=== PATIENT | male | born 1965 | race Caucasian/White ===

== ENCOUNTER 2016-09-25 15:23 | Emergency (ER) | payer BC ==
--- NOTE | 2016-09-25 18:04 | ER Document Report ---
ED Medical Screen (RME) - General Chief Complaint: High Blood Pressure Stated Complaint: BACK PAIN Mode of Arrival: Ambulatory Information source: Patient Notes: Patient is c/o "just not feeling up" and believes his blood pressure is up. He endorses feeling "foggy" in the head for the past 3 days. He endorses back pain that radiates down both legs and describes the pain as burning. Associated symptoms include lightheadedness, changes in vision, headache denies fever, chills, cough, chest pain, SOB, n/v or urinary symptoms. TRAVEL OUTSIDE OF THE U[place] IN LAST 30 DAYS: No - Related Data Allergies/Adverse Reactions: ibuprofen Allergy (Verified 09/25/16 15:30) Past Medical History - Past Medical History Cardiac Medical History: Reports: Hx Hypertension Past Surgical History: Reports: Hx Orthopedic Surgery - Discectomy and spinal fusion L5-S1 2009 in [place] - Immunizations Hx Diphtheria, Pertussis, Tetanus Vaccination: Yes Review of Systems - Review of Systems Constitutional: See HPI Musculoskeletal: See HPI Physical Exam - Vital signs Vitals: Temp Pulse Resp BP Pulse Ox 97.7 F 74 18 154/104 H 98 09/25/16 15:27 09/25/16 15:27 09/25/16 15:27 09/25/16 15:27 09/25/16 15:27 - Notes Notes: General: alert and oriented. Well-appearing. BP elevated 154/104 but otherwise VSS Course - Vital Signs Vital signs: Temp Pulse Resp BP Pulse Ox 97.7 F 74 18 154/104 H 98 09/25/16 15:27 09/25/16 15:27 09/25/16 15:27 09/25/16 15:27 09/25/16 15:27
[2016-09-25 19:09] LABS: ABSOLUTE BASOPHILS # (AUTO) 0.1 10^3/uL (0.0-0.2); ABSOLUTE EOSINOPHILS # (AUTO) 0.1 10^3/uL (0.0-0.6); ABSOLUTE LYMPHOCYTES (AUTO) 1.5 10^3/uL (0.5-4.7); ABSOLUTE MONOCYTES (AUTO) 0.5 10^3/uL (0.1-1.4); ABSOLUTE NEUT (AUTO) 4.9 10^3/uL (1.7-8.2); HEMATOCRIT 45.5 % (37.9-51.0); HEMOGLOBIN 15.7 g/dL (13.5-17.0); HGB HCT DIFFERENCE 1.6; LYMPHOCYTES % (AUTO) 21.1 % (13-45); MEAN CORPUSCULAR HEMOGLOBIN 31.4 pg (27.0-33.4); MEAN CORPUSCULAR HGB CONC 34.5 g/dL (32.0-36.0); MEAN CORPUSCULAR VOLUME 91 fl (80-97); RED CELL DISTRIBUTION WIDTH 13.5 % (11.5-14.0); SEGMENTED NEUTROPHILS % (AUTO) 68.9 % (42-78); WHITE BLOOD COUNT 7.1 10^3/uL (4.0-10.5)
[2016-09-25 19:19] LABS: APPEARANCE,URINE CLEAR; BILIRUBIN,URINE NEGATIVE (NEGATIVE); GLUCOSE, URINE NEGATIVE (NEGATIVE); KETONES,URINE NEGATIVE (NEGATIVE); LEUKOCYTE ESTERASE,URINE NEGATIVE (NEGATIVE); NITRITE,URINE NEGATIVE (NEGATIVE); PROTEIN,URINE NEGATIVE (NEGATIVE); URINE SPECIFIC GRAVITY 1.021; UROBILINOGEN,URINE NEGATIVE mg/dL (<2.0)
[2016-09-25 19:29] LABS: ALANINE AMINOTRANSFERASE 62 U/L (21-72); ALBUMIN 4.2 g/dL (3.5-5.0); ALKALINE PHOSPHATASE 67 U/L (38-126); ANION GAP 14 (5-19); ASPARTATE AMINO TRANSFERASE 30 U/L (17-59); BILIRUBIN,TOTAL 0.7 mg/dL (0.2-1.3); BLOOD UREA NITROGEN 10 mg/dL (7-20); CALCIUM 9.8 mg/dL (8.4-10.2); CARBON DIOXIDE 28 mmol/L (22-30); CHLORIDE 104 mmol/L (98-107); CREATININE RESULT 1.02 mg/dL (0.52-1.25); GLUCOSE 107 mg/dL (75-110); POTASSIUM 3.9 mmol/L (3.6-5.0); SODIUM 145.5 mmol/L (137-145)
--- NOTE | 2016-09-25 22:02 | EKG REPORT ---
SEVERITY:- NORMAL ECG - SINUS RHYTHM : Confirmed by: Zach Whitley 25-Sep-2016 22:01:05
[2016-09-25] MEDS ORDERED: OXYCODONE-ACETAMINOPHEN 5-325 MG TABLET PO ONE (22:37)
[2016-09-25] MEDS ORDERED: GABAPENTIN 300 MG CAPSULE PO ONE (22:37)
--- NOTE | 2016-09-25 22:45 | ER Document Report ---
ED General - General Chief Complaint: Blood Pressure Problem Stated Complaint: BACK PAIN Mode of Arrival: Ambulatory TRAVEL OUTSIDE OF THE U[place] IN LAST 30 DAYS: No - HPI Patient complains to provider of: lower back pain elevated blood pressure Notes: Patient states recently relocated from [place] to [facility]. Patient states ongoing back pain in the last few days no bowel or bladder incontinence. Patient states burning tingling sensation lateral feet going down the back of his legs. Patient states he had an ablation of some spinal nerves in [place] for his chronic back pain. Patient denies numbness and tingling no saddle anesthesias. Denies fevers chills. Patient also states that his blood pressures been elevated last few days. Patient currently on amlodipine. Patient has not established his care with a local providers - Related Data Allergies/Adverse Reactions: ibuprofen Allergy (Verified 09/25/16 22:26) Past Medical History - General Information source: Patient - Social History Smoking Status: Unknown if Ever Smoked Family History: Reviewed & Not Pertinent Patient has suicidal ideation: No Patient has homicidal ideation: No - Past Medical History Cardiac Medical History: Reports: Hx Hypertension Past Surgical History: Reports: Hx Orthopedic Surgery - Discectomy and spinal fusion L5-S1 2009 in [place] - Immunizations Hx Diphtheria, Pertussis, Tetanus Vaccination: Yes Review of Systems - Review of Systems Constitutional: Other - Hypertension EENT: No symptoms reported Cardiovascular: No symptoms reported Respiratory: No symptoms reported Gastrointestinal: No symptoms reported Genitourinary: No symptoms reported Male Genitourinary: No symptoms reported Musculoskeletal: Back pain Skin: No symptoms reported Hematologic/Lymphatic: No symptoms reported Neurological/Psychological: No symptoms reported Physical Exam - Vital signs Vitals: Temp Pulse Resp BP Pulse Ox 97.7 F 74 18 154/104 H 98 09/25/16 15:27 09/25/16 15:27 09/25/16 15:27 09/25/16 15:27 09/25/16 15:27 Interpretation: Hypertensive - General General appearance: Appears well, Alert - HEENT Head: Normocephalic, Atraumatic Eyes: Normal Pupils: PERRL - Respiratory Respiratory status: No respiratory distress Chest status: Nontender Breath sounds: Normal Chest palpation: Normal - Cardiovascular Rhythm: Regular Heart sounds: Normal auscultation Murmur: No - Abdominal Inspection: Normal Distension: No distension Bowel sounds: Normal Tenderness: Nontender Organomegaly: No organomegaly - Back Back: Normal, Nontender - Extremities General upper extremity: Normal inspection, Nontender, Normal color, Normal ROM , Normal temperature General lower extremity: Normal inspection, Nontender, Normal color, Normal ROM , Normal temperature, Normal weight bearing. No: Shaka's sign - Neurological Neuro grossly intact: Yes Cognition: Normal Orientation: AAOx4 Trish Coma Scale Eye Opening: Spontaneous Trish Coma Scale Verbal: Oriented [place] Coma Scale Motor: Obeys Commands [place] Coma Scale Total: 15 Speech: Normal Motor strength normal: LUE, RUE, LLE, RLE Sensory: Normal Knee - Reflex grade: 2 = Normal - Psychological Associated symptoms: Normal affect, Normal mood - Skin Skin Temperature: Warm Skin Moisture: Dry Skin Color: Normal Course - Re-evaluation Re-evalutation: 09/26/16 04:23 Possibility patient had neuropathic pain. Will start patient on Neurontin. Also give the patient oxycodone for pain relief. Patient is to follow-up PCP and local pain clinic. Patient states understanding lab work otherwise shows no critical etiology physical exam shows no critical etiology. - Vital Signs Vital signs: Temp Pulse Resp BP Pulse Ox 98.4 F 74 16 147/84 H 97 09/25/16 23:11 09/25/16 23:11 09/25/16 23:11 09/25/16 23:11 09/25/16 23:11 - Laboratory Result Diagrams: 09/25/16 18:45 09/25/16 18:45 Laboratory results interpreted by me: 09/25/16 18:45 Sodium 145.5 H Discharge - Discharge Clinical Impression: Low back pain Qualifiers: Chronicity: acute Back pain laterality: bilateral Sciatica presence: without sciatica Qualified Code(s): M54.5 - Low back pain Hypertension Qualifiers: Hypertension type: essential hypertension Qualified Code(s): I10 - Essential ( primary) hypertension Condition: Good Disposition: HOME, SELF-CARE Instructions: Low Back Pain ([facility]), Chronic Back Pain ([facility]), Chronic Pain Control ([facility]), Oral Narcotic Medication ([facility]) Additional Instructions: Follow-up with primary care physician provided. Also follow-up with chronic pain specialist provided. Take medication as prescribed. Return to the ER symptoms worsen. Please continue hypertensive medications. Prescriptions: Gabapentin [Neurontin 300 mg Capsule] 300 mg PO Q8 #90 cap Oxycodone HCl 5 mg PO Q6 #20 tablet Referrals: GLENNA SIFUENTES MD [ACTIVE STAFF] - Follow up as needed FREDERIC BROWN MD [ACTIVE STAFF] - Follow up as needed
[2016-09-25 23:12] VITALS: BP 147/84
== END 2016-09-25 23:14 | disposition home or self-care (01) ==
LOC: ER 15:23
DX: M54.5 Low back pain (principal); I10 Essential (primary) hypertension; Z79.899 Other long term (current) drug therapy
CPT/HCPCS: 36415; 80053; 81001; 84484; 85025; 93005; 93010; 99283

== ENCOUNTER 2016-10-31 10:11 | Emergency (ER) | payer BC ==
[2016-10-31 10:51] VITALS: BP 129/92
[2016-10-31] MEDS ORDERED: ACETAMINOPHEN 325 MG TABLET PO ONE (11:10)
[2016-10-31] MEDS ORDERED: PREDNISONE 20 MG TABLET PO ONE (11:10)
[2016-10-31] MEDS ORDERED: IPRATROPIUM/ALBUTEROL 0.5-2.5 MG/3 ML AMPUL NEB ONE (11:10)
--- NOTE | 2016-10-31 11:11 | ER Document Report ---
ED Medical Screen (RME) - General Stated Complaint: LIGHT HEADED Mode of Arrival: Ambulatory Information source: Patient Notes: Patient blood pressure at home was 192/106 at home. Patient states his blood pressure is now improved. Patient reports dizziness and headache at home. Patient reports only mild headache now. Patient denies any chest pain, but does report a recent chest cold. Patient states that headache pain is more to the sinus area and he is congested right now. Hx: Hypertension, chronic pain due to back surgery I have greeted and performed a rapid initial assessment of this patient. A comprehensive ED assessment and evaluation of the patient, analysis of test results and completion of the medical decision making process will be conducted by additional ED providers. TRAVEL OUTSIDE OF THE [place] IN LAST 30 DAYS: No - Related Data Allergies/Adverse Reactions: ibuprofen Allergy (Verified 10/31/16 11:06) Past Medical History - Past Medical History Cardiac Medical History: Reports: Hx Hypertension Past Surgical History: Reports: Hx Orthopedic Surgery - Discectomy and spinal fusion L5-S1 2009 in [place] - Immunizations Hx Diphtheria, Pertussis, Tetanus Vaccination: Yes Physical Exam - Vital signs Vitals: Temp Pulse Resp Pulse Ox 98.4 F 75 18 95 10/31/16 10:48 10/31/16 10:48 10/31/16 10:48 10/31/16 10:48 - Neurological Cognition: Normal Trish Coma Scale Eye Opening: Spontaneous Trish Coma Scale Verbal: Oriented [place] Coma Scale Motor: Obeys Commands [place] Coma Scale Total: 15 Course - Vital Signs Vital signs: Temp Pulse Resp BP Pulse Ox 98.4 F 75 18 129/92 H 95 10/31/16 10:48 10/31/16 10:48 10/31/16 10:48 10/31/16 10:49 10/31/16 10:48
[2016-10-31] MEDS ORDERED: ALBUTEROL SULFATE 0.083% NEB 2.5 MG/3 ML AMPUL NEB SCH (11:25)
== END 2016-10-31 12:41 | disposition left against medical advice (07) ==
LOC: ER 10:11
DX: Z53.9 Procedure and treatment not carried out, unspecified reason (principal); R42 Dizziness and giddiness; R51 Headache; I10 Essential (primary) hypertension
CPT/HCPCS: 94640; 99281; 71020; J7512; J7620

== ENCOUNTER 2017-11-08 14:11 | Emergency (ER) | payer BC ==
[2017-11-08] MEDS ORDERED: DEXAMETHASONE SOD PHOS INJ 10 MG/1 ML VIAL IM ONE (15:27)
--- NOTE | 2017-11-08 15:29 | ER Document Report ---
HPI - HPI Pain Level: 4 Notes: Patient is a 52-year-old male with a history of hypertension and chronic back pain who presents to the ED complaining of reinjury to his lower back. Patient states that he twisted wrong a few days ago causing recurrence of his pain. Patient states that on occasion his pain will radiate down into his posterior legs bilaterally. Pain is worsened with truncal movements. Patient states that he is still ambulatory otherwise without any difficulties. He is still eating and drinking without any difficulties. He is urinating normally having normal bowel movements. Patient denies any previous history of spinal abscess, IV drug use, cancer, diabetes. Patient states that he is in the process of getting set up with another specialist to have another rhizotomy performed. Denies any headache, fever, head injury, neck pain, URI, sore throat, chest pain , palpitations, syncope, cough, shortness of breath, wheeze, dyspnea, abdominal pain, nausea/vomiting/diarrhea, urinary retention, dysuria, hematuria, loss of control of bowel or bladder, numbness/tingling, saddle anesthesia, muscle paralysis/weakness, or rash. - ROS Systems Reviewed and Negative: Yes All other systems reviewed and negative Past Medical History - Social History Smoking Status: Never Smoker Family History: Reviewed & Not Pertinent - Past Medical History Cardiac Medical History: Reports: Hx Hypertension Renal/ Medical History: Denies: Hx Peritoneal Dialysis Past Surgical History: Reports: Hx Orthopedic Surgery - Discectomy and spinal fusion L5-S1 2009 in [place] - Immunizations Hx Diphtheria, Pertussis, Tetanus Vaccination: Yes Vertical Provider Document - CONSTITUTIONAL Agree With Documented VS: Yes Notes: PHYSICAL EXAMINATION: GENERAL: Well-appearing, well-nourished and in no acute distress. LUNGS: Breath sounds clear to auscultation bilaterally and equal. No wheezes rales or rhonchi. HEART: Regular rate and rhythm without murmurs, rubs, gallops. ABDOMEN: Soft, nontender, nondistended abdomen. No guarding, no rebound. No masses appreciated. Normal bowel sounds present. No CVA tenderness bilaterally. No pulsatile mass Musculoskeletal: LE's b/l: FROM to passive/active. Strength 5+/5. No deficits noted. No bony tenderness of extremities. Back: FROM to passive/active. Strength 5+/5. No vertebral point tenderness, stepoffs, or deformities. No other bony tenderness, erythema, swelling, or ecchymosis. SLR negative b/l. + mild tenderness to the L-paraspinal mm b/l. Mild spasming. No SI jt tenderness. No foot drop Extremities: No cyanosis, clubbing, or edema b/l. Peripheral pulses 2+. Capillary refill less than 2 seconds. NEUROLOGICAL: Normal speech, normal gait. Normal sensory, motor exams. Reflexes 2+ b/l. PSYCH: Normal mood, normal affect. SKIN: Warm, Dry, normal turgor, no rashes or lesions noted. - INFECTION CONTROL TRAVEL OUTSIDE OF THE [place] IN LAST 30 DAYS: No - RESPIRATORY O2 Sat by Pulse Oximetry: 98 Course - Re-evaluation Re-evalutation: 11/08/17 15:34 Patient is an afebrile, well-hydrated, 52-year-old male who presents the ED with acute on chronic low back pain, suspect back strain. Vitals are stable. PE is otherwise unremarkable for any focal neurological deficits. No labs or imaging warranted at this time based on H&P. Decadron given today. I will send him home with a prescription for baclofen. Low suspicion for any meningitis, fracture, expanding/ruptured AAA, cauda equina syndrome, epidural mass lesion/abscess, herniated disc causing severe spinal stenosis, or other systemic infection at this time. Patient is aware that his condition can change from initial presentation and that he needs monitor symptoms closely for any acute changes. Conservative measures otherwise for symptoms. Recheck with your PCM in 3-5 days. Consider consult orthopedics/physical therapy. Return to the ED with any worsening/concerning symptoms otherwise as reviewed discharge. Patient is in agreement. - Vital Signs Vital signs: Temp Pulse Resp BP Pulse Ox 98.7 F 62 20 154/93 H 98 11/08/17 14:37 11/08/17 14:37 11/08/17 14:37 11/08/17 14:37 11/08/17 14:37 Discharge - Discharge Clinical Impression: Low back strain Qualifiers: Encounter type: initial encounter Qualified Code(s): S39.012A - Strain of muscle, fascia and tendon of lower back, initial encounter Condition: Stable Disposition: HOME, SELF-CARE Instructions: Muscle Strain ([facility]), Low Back Pain ([facility]) Additional Instructions: Rest, Ice, Compression, Elevation Tylenol/ibuprofen as needed Light stretches daily Strength exercises as able Moist heat and massage may help F/u with your PCP in 3-5 days for a recheck Consider consult(s) with Orthopedics/physical therapy for ongoing/worsening symptoms Return to the ED with any worsening symptoms and/or development of fever, headache, chest pain, palpitations, syncope, shortness of breath, trouble breathing, abdominal pain, n/v/d, blood in stool/urine, loss of control of bowel /bladder, urinary retention, muscle weakness/paralysis, saddle anesthesia, numbness/tingling, or other worsening symptoms that are concerning to you. Prescriptions: Baclofen [Baclofen 10 mg Tablet] 5 - 10 mg PO BID PRN #10 tablet PRN Reason: Forms: Elevated Blood Pressure Referrals: [facility] [Provider Group] - Follow up as needed
[2017-11-08 16:22] VITALS: BP 129/86
== END 2017-11-08 16:23 | disposition home or self-care (01) ==
LOC: ER 14:11
DX: S39.012A Strain of muscle, fascia and tendon of lower back, initial encounter (principal); X50.9XXA Other and unspecified overexertion or strenuous movements or postures, initial encounter; G89.29 Other chronic pain; I10 Essential (primary) hypertension; Z98.1 Arthrodesis status
CPT/HCPCS: 99283; 96372; J1100

== ENCOUNTER 2018-02-13 14:32 | Emergency (ER) | payer BC ==
[2018-02-13 14:45] VITALS: BP 149/93
[2018-02-13] MEDS ORDERED: DIPHENHYDRAMINE HCL 50 MG CAPSULE PO ONE (14:54)
--- NOTE | 2018-02-13 15:00 | ER Document Report ---
ED General - General Chief Complaint: Bee Sting Stated Complaint: RIGHT HAND PAIN, SWELLING/BEE STING Time Seen by Provider: 02/13/18 14:50 Notes: 52-year-old male here with complaints of bee sting to his right hand near the fifth knuckle just 1 hour ago. He has not had any rash trouble breathing or swelling. He just wanted to come and get checked out to be safe. He has not taken anything for the symptoms. TRAVEL OUTSIDE OF THE [place] IN LAST 30 DAYS: No - Related Data Allergies/Adverse Reactions: ibuprofen Allergy (Verified 02/13/18 14:34) Past Medical History - Social History Smoking Status: Former Smoker Chew tobacco use (# tins/day): No Frequency of alcohol use: Occasional Drug Abuse: None Family History: Reviewed & Not Pertinent Patient has suicidal ideation: No Patient has homicidal ideation: No - Past Medical History Cardiac Medical History: Reports: Hx Hypertension Renal/ Medical History: Denies: Hx Peritoneal Dialysis Past Surgical History: Reports: Hx Orthopedic Surgery - Discectomy and spinal fusion L5-S1 2009 in [place] - Immunizations Hx Diphtheria, Pertussis, Tetanus Vaccination: Yes Review of Systems - Review of Systems Notes: See history of present illness for pertinent positive review of systems; otherwise all review of systems have been reviewed and are negative Physical Exam - Vital signs Vitals: Temp Pulse Resp BP Pulse Ox 98.2 F 61 20 149/93 H 96 02/13/18 14:44 02/13/18 14:44 02/13/18 14:44 02/13/18 14:44 02/13/18 14:44 - Notes Notes: PHYSICAL EXAMINATION: GENERAL: Well-appearing and in no acute distress. HEAD: Atraumatic, normocephalic. EYES: Pupils equal round and reactive to light, extraocular movements intact, sclera anicteric, conjunctiva are normal. ENT: nares patent, oropharynx clear without exudates. Moist mucous membranes. No uvular edema or other facial swelling. NECK: Normal range of motion, supple without lymphadenopathy LUNGS: CTAB and equal. No wheezes rales or rhonchi. HEART: Regular rate and rhythm without murmurs ABDOMEN: Soft, no tenderness. No facial grimacing/wincing upon palpation. No guarding, no rebound. EXTREMITIES: Normal range of motion, no pitting edema. No cyanosis. NEUROLOGICAL: Cranial nerves grossly intact. Normal sensory/motor exams. PSYCH: Normal mood, normal affect. SKIN: Warm, Dry, normal turgor, no rashes or lesions noted. There is a small puncture wound just proximal to the fifth metacarpal with no hives visualized Course - Re-evaluation Re-evalutation: 02/13/18 14:59 MEDICAL DECISION MAKING: Patient does not have any symptoms concerning for acute emergency anaphylactic reaction His airway is widely patent and I will give him a dose of Benadryl to decrease the swelling Will prescribe EpiPen and when to use it Instructed follow-up PCP next day or few Patient understands and agrees to the plan of care - Vital Signs Vital signs: Temp Pulse Resp BP Pulse Ox 98.2 F 61 20 149/93 H 96 02/13/18 14:44 02/13/18 14:44 02/13/18 14:44 02/13/18 14:44 02/13/18 14:44 Discharge - Discharge Clinical Impression: Bee sting Qualifiers: Encounter type: initial encounter Injury intent: accidental or unintentional Qualified Code(s): T63.441A - Toxic effect of venom of bees, accidental ( unintentional), initial encounter Condition: Good Disposition: HOME, SELF-CARE Instructions: Epinephrine Additional Instructions: You were seen in the emergency department at [facility]. Use Benadryl for any itching, rash, or swelling. Keep ice on the area and keep it elevated to decrease swelling. If you were given any sedating medications, be sure not to operate heavy machinery (example - driving) and be sure you are not too sedated to walk appropriately. Please followup with your primary physician in the next few days for further management/evaluation. Please return to the emergency department for worsening of symptoms or any symptom that you deem to be concerning or life-threatening. Thank you for allowing us to be part of your care. Prescriptions: Epinephrine [Epipen 2-Librado] 0.3 mg IJ ASDIR PRN #1 auto.[email or web address] PRN Reason:
== END 2018-02-13 15:01 | disposition home or self-care (01) ==
LOC: ER 14:32
DX: T63.441A Toxic effect of venom of bees, accidental (unintentional), initial encounter (principal); X58.XXXA Exposure to other specified factors, initial encounter; Z87.891 Personal history of nicotine dependence; I10 Essential (primary) hypertension
CPT/HCPCS: 99282

== ENCOUNTER 2018-02-27 12:30 | Emergency (ER) | payer BC ==
[2018-02-27] MEDS ORDERED: RINGERS SOLUTION,LACTATED 1,000 ML IV PRN (13:37)
[2018-02-27] MEDS ORDERED: ONDANSETRON HCL INJ/PF 4 MG/2 ML SDV IV ONE (13:37)
--- NOTE | 2018-02-27 13:38 | ER Document Report ---
ED Medical Screen (RME) - General Chief Complaint: Nausea/Vomiting Stated Complaint: FEVER Time Seen by Provider: 02/27/18 13:31 Mode of Arrival: Ambulatory Information source: Patient Notes: This is a 52-year-old man with a history of hypertension and GERD who presents to the emergency room with fever, chills, nausea, vomiting and decreased p.o. intake for the past 2 days. Patient states he has vomited approximately 7 times. He denies diarrhea or blood in the stool. He does report sinus congestion. He denies any chest pain or shortness of breath. He denies any abdominal pain. He denies any dysuria. TRAVEL OUTSIDE OF THE [place] IN LAST 30 DAYS: No - Related Data Allergies/Adverse Reactions: ibuprofen Allergy (Verified 02/27/18 12:31) Past Medical History - Social History Chew tobacco use (# tins/day): No Frequency of alcohol use: Rare Drug Abuse: None - Past Medical History Cardiac Medical History: Reports: Hx Hypertension Renal/ Medical History: Denies: Hx Peritoneal Dialysis Past Surgical History: Reports: Hx Orthopedic Surgery - Discectomy and spinal fusion L5-S1 2009 in [place], ACL repair - Immunizations Hx Diphtheria, Pertussis, Tetanus Vaccination: Yes Physical Exam - Vital signs Vitals: Temp Pulse Resp BP Pulse Ox 98.5 F 66 18 134/88 H 100 02/27/18 12:33 02/27/18 12:33 02/27/18 12:33 02/27/18 12:33 02/27/18 12:33 Course - Vital Signs Vital signs: Temp Pulse Resp BP Pulse Ox 98.5 F 66 18 134/88 H 100 02/27/18 12:33 02/27/18 12:33 02/27/18 13:25 02/27/18 12:33 02/27/18 12:33
[2018-02-27 14:16] LABS: ABSOLUTE LYMPHOCYTES (AUTO) 0.5 10^3/uL (0.5-4.7); ABSOLUTE MONOCYTES (AUTO) 0.3 10^3/uL (0.1-1.4); ABSOLUTE NEUT (AUTO) 2.2 10^3/uL (1.7-8.2); BASOPHILS % (AUTO) 0.8 % (0-2); HEMATOCRIT 48.6 % (37.9-51.0); LYMPHOCYTES % (AUTO) 16.6 % (13-45); MEAN CORPUSCULAR HEMOGLOBIN 30.9 pg (27.0-33.4); MEAN CORPUSCULAR HGB CONC 35.1 g/dL (32.0-36.0); MEAN CORPUSCULAR VOLUME 88 fl (80-97); MONOCYTES % (AUTO) 9.2 % (3-13); PLATELET COUNT 109 10^3/uL (150-450); RED BLOOD COUNT 5.52 10^6/uL (4.35-5.55); RED CELL DISTRIBUTION WIDTH 12.8 % (11.5-14.0); SEGMENTED NEUTROPHILS % (AUTO) 73.4 % (42-78); TOTAL CELLS COUNTED % (AUTO) 100 %; WHITE BLOOD COUNT 3.1 10^3/uL (4.0-10.5)
[2018-02-27 14:49] LABS: ALANINE AMINOTRANSFERASE 63 U/L (21-72); ALBUMIN 4.8 g/dL (3.5-5.0); ALKALINE PHOSPHATASE 53 U/L (38-126); ANION GAP 15 (5-19); ASPARTATE AMINO TRANSFERASE 57 U/L (17-59); BILIRUBIN,DIRECT 0.5 mg/dL (0.0-0.4); BILIRUBIN,TOTAL 1.2 mg/dL (0.2-1.3); BLOOD UREA NITROGEN 16 mg/dL (7-20); CARBON DIOXIDE 31 mmol/L (22-30); CHLORIDE 95 mmol/L (98-107); GLUCOSE 115 mg/dL (75-110); POTASSIUM 3.6 mmol/L (3.6-5.0); SODIUM 140.8 mmol/L (137-145); TOTAL PROTEIN 8.2 g/dL (6.3-8.2)
[2018-02-27] MEDS ORDERED: NORMAL SALINE 1000 ML 1,000 ML IV PRN (15:37)
[2018-02-27] MEDS ORDERED: NORMAL SALINE 1000 ML 1,000 ML IV ONE (16:04)
--- NOTE | 2018-02-27 16:25 | ER Document Report ---
ED General - General Chief Complaint: Nausea/Vomiting Stated Complaint: FEVER Time Seen by Provider: 02/27/18 13:31 Mode of Arrival: Ambulatory Information source: Patient Notes: 52-year-old male with hypertension, GERD presents with complaint of 3 days of nausea, vomiting. Patient states that since Sunday he has been unable to tolerate any food or liquids without vomiting. Patient reports approximately 6 episodes of vomiting per day for the last 3 days. Patient also reports fever of 102 at home. He denies any abdominal pain, diarrhea, dysuria, hematuria, back pain. She denies sick contacts, new medications, recent travel, prior similar symptoms. TRAVEL OUTSIDE OF THE [place] IN LAST 30 DAYS: No - HPI Onset: Other Onset/Duration: Persistent Quality of pain: No pain Associated symptoms: Fever Exacerbated by: Food Relieved by: Denies Similar symptoms previously: No Recently seen / treated by doctor: No - Related Data Allergies/Adverse Reactions: ibuprofen Allergy (Verified 02/27/18 12:31) Past Medical History - General Information source: Patient - Social History Smoking Status: Current Every Day Smoker Chew tobacco use (# tins/day): No Frequency of alcohol use: Rare Drug Abuse: None Lives with: Spouse/Significant other Family History: Reviewed & Not Pertinent Patient has suicidal ideation: No Patient has homicidal ideation: No - Past Medical History Cardiac Medical History: Reports: Hx Hypertension Renal/ Medical History: Denies: Hx Peritoneal Dialysis Past Surgical History: Reports: Hx Orthopedic Surgery - Discectomy and spinal fusion L5-S1 2009 in [place], ACL repair - Immunizations Hx Diphtheria, Pertussis, Tetanus Vaccination: Yes Review of Systems - Review of Systems Notes: REVIEW OF SYSTEMS: CONSTITUTIONAL : Denies fever, chills, or sweats. Denies recent illness. Denies weight loss, recent hospitalizations. EENT: Denies visula changes, eye pain. Denies nasal or sinus congestion or discharge. Denies sore throat, oral lesions, difficulty swallowing. CARDIOVASCULAR: Denies chest pain. Denies palpitations or racing or irregular heart beat. Denies lower extremity edema. RESPIRATORY: Denies cough, cold, or chest congestion. Denies shortness of breath, difficulty breathing, or wheezing. GASTROINTESTINAL: Denies abdominal pain or distention. Denies diarrhea. Denies blood in vomitus, stools, or per rectum. Denies black, tarry stools. Denies constipation. GENITOURINARY: Denies difficulty urinating, painful urination, burning, frequency, blood in urine, or vaginal discharge. MUSCULOSKELETAL: Denies back or neck pain or stiffness. Denies joint pain or swelling. SKIN: Denies rash, lesions or sores. HEMATOLOGIC : Denies easy bruising or bleeding. LYMPHATIC: Denies swollen, enlarged glands. NEUROLOGICAL: Denies confusion or altered mental status. Denies passing out or loss of consciousness. Denies dizziness or lightheadedness. Denies headache. Denies weakness or paralysis or loss of use of either side. Denies problems with gait or speech. Denies sensory loss, numbness, or tingling. Denies seizures. PSYCHIATRIC: Denies anxiety or stress. Denies depression, suicidal ideation, or homicidal ideation. Physical Exam - Vital signs Vitals: Temp Pulse Resp BP Pulse Ox 98.5 F 66 18 134/88 H 100 02/27/18 12:33 02/27/18 12:33 02/27/18 12:33 02/27/18 12:33 02/27/18 12:33 - Notes Notes: PHYSICAL EXAMINATION: GENERAL: Well-appearing, well-nourished and in no acute distress. HEAD: Atraumatic, normocephalic. EYES: Pupils equal round and reactive to light, extraocular movements intact, sclera anicteric, conjunctiva are normal. ENT: Nares patent, oropharynx clear without exudates. Dry mucous membranes. NECK: Normal range of motion, supple without lymphadenopathy LUNGS: Breath sounds clear to auscultation bilaterally and equal. No wheezes rales or rhonchi. HEART: Regular rate and rhythm without murmurs ABDOMEN: Soft, nontender, nondistended abdomen. No guarding, no rebound. No masses appreciated. Musculoskeletal: Normal range of motion, no pitting or edema. No cyanosis. NEUROLOGICAL: Cranial nerves grossly intact. Normal speech, normal gait. Normal sensory, motor exams PSYCH: Normal mood, normal affect. SKIN: Warm, Dry, normal turgor, no rashes or lesions noted. Course - Re-evaluation Re-evalutation: 02/27/18 23:42 52-year-old male with hypertension, GERD presents with complaint of 3 days of nausea, vomiting. Patient states that since Sunday he has been unable to tolerate any food or liquids without vomiting. Patient reports approximately 6 episodes of vomiting per day for the last 3 days. Patient also reports fever of 102 at home. He denies any abdominal pain, diarrhea, dysuria, hematuria, back pain. Patient was seen by myself upon arrival. Vital signs were reviewed. Patient is afebrile, hypertensive and not hypoxic. Patient does not appear toxic he does appear mildly dehydrated. They are in no acute distress. Previous medical records and nursing notes reviewed. Significant findings include a CMP which is significant for an acute kidney injury. Patient was provided IV fluids, Zofran. Repeat BMP shows no BRYANNA. Patient has had no vomiting since administration of Zofran. Patient provided the opportunity to ask questions, and express concerns. Discharge instructions discussed. Patient is agreeable with discharge home. Return indications explained and discussed with the patient who displays understanding. Patient encouraged to return to the emergency department immediately with any concerns. - Vital Signs Vital signs: Temp Pulse Resp BP Pulse Ox 99.4 F 78 16 162/98 H 98 02/27/18 20:03 02/27/18 20:03 02/27/18 20:03 02/27/18 20:03 02/27/18 20:03 - Laboratory Result Diagrams: 02/27/18 13:55 02/27/18 18:47 Laboratory results interpreted by me: 02/27/18 02/27/18 02/27/18 13:55 13:55 18:40 WBC 3.1 L Plt Count 109 L Chloride 95 L Carbon Dioxide 31 H Creatinine 1.55 H Est GFR ( Amer) 58 L Est GFR (Non-Af Amer) 48 L Glucose 115 H Direct Bilirubin 0.5 H Urine Ketones TRACE H Urine Urobilinogen 2.0 H Discharge - Discharge Clinical Impression: BRYANNA (acute kidney injury) Nausea & vomiting Qualifiers: Vomiting type: unspecified Vomiting Intractability: unspecified Qualified Code( s): R11.2 - Nausea with vomiting, unspecified Condition: Good Disposition: HOME, SELF-CARE Instructions: Antinausea Medication ([facility]), Fever ([facility]), Intravenous (IV) Fluids ([facility]), Viral Syndrome ([facility]), Vomiting ([facility]) Additional Instructions: Follow up with your physician tomorrow for further care or return to the ED IMMEDIATELY if symptoms worsen or new concerns occur. If you cannot afford to follow up with your primary care physician a list of low cost clinics have been provided at the end of your discharge papers as well. Prescriptions: Ondansetron [Zofran Odt 4 mg Tablet] 1 - 2 tab PO Q4H PRN #15 tab.rapdis PRN Reason: For Nausea/Vomiting Forms: Elevated Blood Pressure
[2018-02-27 19:13] LABS: ANION GAP 12 (5-19); BLOOD UREA NITROGEN 14 mg/dL (7-20); CALCIUM 8.6 mg/dL (8.4-10.2); CARBON DIOXIDE 29 mmol/L (22-30); CHLORIDE 101 mmol/L (98-107); GLUCOSE 109 mg/dL (75-110); POTASSIUM 3.7 mmol/L (3.6-5.0); SODIUM 141.6 mmol/L (137-145)
[2018-02-27 19:20] LABS: APPEARANCE,URINE SLIGHTLY-CLOUDY; BILIRUBIN,URINE NEGATIVE (NEGATIVE); COLOR,URINE YELLOW; GLUCOSE, URINE NEGATIVE (NEGATIVE); KETONES,URINE TRACE mg/dL (NEGATIVE); LEUKOCYTE ESTERASE,URINE NEGATIVE (NEGATIVE); NITRITE,URINE NEGATIVE (NEGATIVE); PROTEIN,URINE NEGATIVE (NEGATIVE); URINE SPECIFIC GRAVITY 1.019
[2018-02-27 20:06] VITALS: BP 162/98
== END 2018-02-27 20:06 | disposition home or self-care (01) ==
LOC: ER 12:30
DX: N17.9 Acute kidney failure, unspecified (principal); R11.2 Nausea with vomiting, unspecified; R50.9 Fever, unspecified; F17.200 Nicotine dependence, unspecified, uncomplicated; I10 Essential (primary) hypertension; K21.9 Gastro-esophageal reflux disease without esophagitis; Z88.6 Allergy status to analgesic agent; Z98.1 Arthrodesis status
CPT/HCPCS: 99284; 96361; 96374; 36415; 85025; 80048; 80053; 81001; J2405; J7030

== ENCOUNTER 2018-03-01 11:10 | Observation (INO) | payer BC ==
[2018-03-01] MEDS ORDERED: METOCLOPRAMIDE HCL INJ/PF 10 MG/2 ML SDV IV ONE (12:11)
[2018-03-01 12:20] LABS: HEMATOCRIT 43.7 % (37.9-51.0); HEMOGLOBIN 15.2 g/dL (13.5-17.0); MEAN CORPUSCULAR HEMOGLOBIN 30.8 pg (27.0-33.4); MEAN CORPUSCULAR HGB CONC 34.9 g/dL (32.0-36.0); MEAN CORPUSCULAR VOLUME 88 fl (80-97); RED BLOOD COUNT 4.94 10^6/uL (4.35-5.55); RED CELL DISTRIBUTION WIDTH 12.7 % (11.5-14.0)
[2018-03-01] MEDS ORDERED: NORMAL SALINE 1000 ML 1,000 ML IV ONE (12:43)
[2018-03-01 12:44] LABS: ALANINE AMINOTRANSFERASE 123 U/L (21-72); ALKALINE PHOSPHATASE 84 U/L (38-126); ANION GAP 11 (5-19); ASPARTATE AMINO TRANSFERASE 148 U/L (17-59); BILIRUBIN,DIRECT 0.8 mg/dL (0.0-0.4); BILIRUBIN,TOTAL 1.6 mg/dL (0.2-1.3); BLOOD UREA NITROGEN 13 mg/dL (7-20); CALCIUM 9.2 mg/dL (8.4-10.2); CARBON DIOXIDE 33 mmol/L (22-30); CHLORIDE 96 mmol/L (98-107); GLUCOSE 110 mg/dL (75-110); LIPASE 32.9 U/L (23-300); POTASSIUM 3.4 mmol/L (3.6-5.0); SODIUM 140.2 mmol/L (137-145); TOTAL PROTEIN 6.8 g/dL (6.3-8.2)
[2018-03-01 12:58] LABS: WHITE BLOOD COUNT 1.7 10^3/uL (4.0-10.5)
[2018-03-01 12:59] LABS: PLATELET COUNT 66 10^3/uL (150-450)
[2018-03-01 13:02] LABS: ABSOLUTE LYMPHOCYTES# (MANUAL) 0.5 10^3/uL (0.5-4.7); ABSOLUTE NEUTROPHILS# (MANUAL) 1.2 10^3/uL (1.7-8.2); ANISOCYTOSIS SLIGHT; BAND NEUTROPHILS % (MANUAL) 30 % (3-5); BASOPHILS % (MANUAL) 2 % (0-2); EOSINOPHILS % (MANUAL) 0 % (0-6); LYMPHOCYTES % (MANUAL) 22 % (13-45); MONOCYTES % (MANUAL) 2 % (3-13); PLATELET COMMENT DECREASED; SEGMENTED NEUTROPHILS % (MAN) 22 % (42-78); TOTAL CELLS COUNTED 50
--- NOTE | 2018-03-01 13:02 | ER Document Report ---
ED General - General Chief Complaint: Nausea/Vomiting Stated Complaint: STOMACH PAINS Time Seen by Provider: 03/01/18 11:16 Mode of Arrival: Ambulatory Information source: Patient, [facility] Records Notes: 52-year-old male presents with complaints of nausea vomiting fevers sweats over the past week. Patient notes symptoms are started on Sunday was seen here 2 days prior noted to have mild dehydration, patient was given IV fluids Zofran for home, notes when he takes Zofran his symptoms are manageable, he has not vomited today but has been having dry heaves and sweating. Patient has had no pain at all TRAVEL OUTSIDE OF THE [place] IN LAST 30 DAYS: No - HPI Onset: Last week Onset/Duration: Waxing and waning Quality of pain: No pain Severity: Mild Pain Level: Denies Associated symptoms: Headache - Mild headache but no abdominal pain, Nausea, Vomiting Exacerbated by: Denies Relieved by: Other - Zofran Similar symptoms previously: Yes Recently seen / treated by doctor: Yes - Related Data Allergies/Adverse Reactions: ibuprofen Allergy (Verified 03/01/18 11:11) Past Medical History - Social History Smoking Status: Never Smoker Cigarette use (# per day): No Chew tobacco use (# tins/day): No Smoking Education Provided: No Frequency of alcohol use: None Drug Abuse: None Family History: Reviewed & Not Pertinent Patient has suicidal ideation: No Patient has homicidal ideation: No - Past Medical History Cardiac Medical History: Reports: Hx Hypertension Renal/ Medical History: Denies: Hx Peritoneal Dialysis Past Surgical History: Reports: Hx Orthopedic Surgery - Discectomy and spinal fusion L5-S1 2009 in [place], ACL repair - Immunizations Hx Diphtheria, Pertussis, Tetanus Vaccination: Yes Review of Systems - Review of Systems Notes: REVIEW OF SYSTEMS: CONSTITUTIONAL : Admits to fevers and chills EENT: Denies eye, ear, throat, or mouth pain or symptoms. Denies nasal or sinus congestion or discharge. Denies throat, tongue, or mouth swelling or difficulty swallowing. CARDIOVASCULAR: Denies chest pain. Denies palpitations or racing or irregular heart beat. Denies ankle edema. RESPIRATORY: Denies cough, cold, or chest congestion. Denies shortness of breath, difficulty breathing, or wheezing. GASTROINTESTINAL: Admits to nausea vomiting dry heaves GENITOURINARY: Denies difficulty urinating, painful urination, burning, frequency, blood in urine, or discharge. MUSCULOSKELETAL: Denies back or neck pain or stiffness. Denies joint pain or swelling. SKIN: Denies rash, lesions or sores. HEMATOLOGIC : Denies easy bruising or bleeding. LYMPHATIC: Denies swollen, enlarged glands. NEUROLOGICAL: Denies confusion or altered mental status. Denies passing out or loss of consciousness. Denies dizziness or lightheadedness. Denies headache. Denies weakness or paralysis or loss of use of either side. Denies problems with gait or speech. Denies sensory loss, numbness, or tingling. Denies seizures. PSYCHIATRIC: Denies anxiety or stress. Denies depression, suicidal ideation, or homicidal ideation. ALL OTHER SYSTEMS REVIEWED AND NEGATIVE. Dictation was performed using [employer] voice recognition software PHYSICAL EXAMINATION: GENERAL: Well-appearing, well-nourished and in no acute distress. HEAD: Atraumatic, normocephalic. EYES: Pupils equal round and reactive to light, extraocular movements intact, sclera anicteric, conjunctiva are normal. ENT: Nares patent, oropharynx clear without exudates. Moist mucous membranes. NECK: Normal range of motion, supple without lymphadenopathy LUNGS: Breath sounds clear to auscultation bilaterally and equal. No wheezes rales or rhonchi. HEART: Regular rate and rhythm without murmurs ABDOMEN: Soft, nontender, nondistended abdomen. No guarding, no rebound. No masses appreciated. Musculoskeletal: Normal range of motion, no pitting or edema. No cyanosis. NEUROLOGICAL: Cranial nerves grossly intact. Normal speech, normal gait. Normal sensory, motor exams PSYCH: Normal mood, normal affect. SKIN: Warm, Dry, normal turgor, no rashes or lesions noted. Physical Exam - Vital signs Vitals: Temp Pulse Resp BP Pulse Ox 97.9 F 74 16 119/82 99 03/01/18 11:16 03/01/18 11:16 03/01/18 11:16 03/01/18 11:16 03/01/18 11:16 Course - Re-evaluation Re-evalutation: 03/01/18 13:02 Patient overall looks quite well, however he is having vomiting and fevers from unknown source, lab work CT pending 03/01/18 13:19 Significant bandemia noted, will be started on fluids I do not have a source of infection, I will start him on Zosyn surgeon has been consulted 03/01/18 16:[address] is noted no significant abnormality, repeat lab work notes improvement of the bandemia however it is at 11% and still quite concerning, patient will be admitted to the hospitalist service - Vital Signs Vital signs: Temp Pulse Resp BP Pulse Ox 97.9 F 74 16 119/82 99 03/01/18 11:16 03/01/18 11:16 03/01/18 11:16 03/01/18 11:16 03/01/18 11:16 - Laboratory Result Diagrams: 03/01/18 13:27 03/01/18 13:27 Laboratory results interpreted by me: 03/01/18 03/01/18 03/01/18 12:07 12:07 13:27 WBC 1.7 L D 2.0 L Plt Count 66 L 66 L Seg Neuts % (Manual) 22 L Band Neutrophils % 30 H 11 H Monocytes % (Manual) 2 L 14 H Metamyelocytes % 16 H Abs Neuts (Manual) 1.2 L 1.3 L Abs Lymphs (Manual) 0.4 L Abs Monocytes (Manual) 0.0 L Potassium 3.4 L Chloride 96 L Carbon Dioxide 33 H Total Bilirubin 1.6 H Direct Bilirubin 0.8 H AST 148 H ALT 123 H 03/01/18 13:27 WBC Plt Count Seg Neuts % (Manual) Band Neutrophils % Monocytes % (Manual) Metamyelocytes % Abs Neuts (Manual) Abs Lymphs (Manual) Abs Monocytes (Manual) Potassium 3.3 L Chloride 95 L Carbon Dioxide 35 H Total Bilirubin 1.8 H Direct Bilirubin 1.0 H AST 139 H ALT 119 H - Diagnostic Test Radiology reviewed: Image reviewed - CT chest with IV contrast notes no significant abnormality, Reports reviewed Discharge - Discharge Clinical Impression: Bandemia without diagnosis of specific infection Intractable nausea and vomiting Qualifiers: Vomiting type: unspecified Qualified Code(s): R11.2 - Nausea with vomiting, unspecified Condition: Stable Disposition: ADMITTED INPATIENT Admitting Provider: Hospitalist Unit Admitted: Telemetry Referrals: MARCO ANTONIO CHAVEZ PA-C [Primary Care Provider] - Follow up as needed
[2018-03-01 13:05] LABS: METAMYELOCYTES % (MANUAL) 16 % (0)
[2018-03-01] MEDS ORDERED: PIPERACILLIN/TAZOBACTAM 3.375 GM VIAL IV ONE (13:20)
[2018-03-01 13:58] LABS: HEMATOCRIT 44.5 % (37.9-51.0); HEMOGLOBIN 15.3 g/dL (13.5-17.0); MEAN CORPUSCULAR HEMOGLOBIN 30.2 pg (27.0-33.4); MEAN CORPUSCULAR HGB CONC 34.4 g/dL (32.0-36.0); MEAN CORPUSCULAR VOLUME 88 fl (80-97); RED BLOOD COUNT 5.07 10^6/uL (4.35-5.55); RED CELL DISTRIBUTION WIDTH 12.6 % (11.5-14.0)
--- NOTE | 2018-03-01 14:02 | PDOC H&P ---
History of Present Illness Admission Date/PCP: MARCO ANTONIO CHAVEZ PA-C Patient complains of: Nausea and vomiting, fatigue History of Present Illness: AARON LAWRENCE is a 52 year old male Who presents to the emergency department via ground rescue complaining approximately week history of feeling weak, nausea vomiting loose stools. He was seen in the emergency department 2 days ago with similar symptoms, and slightly abnormal lab values, diagnosed with gastroenteritis and sent home. Because of persisting symptoms, he returned to the emergency department. There he was found to be hemodynamically stable with minimal findings on physical exam however his white blood cell count was severely depressed as were his platelets. Surgery was consulted. Patient reports sweats for the last week possibly longer. He denies weight loss, lethargy or decreased clinical function. Denies history of trauma, alcoholic binging. Last colonoscopy at age 47 due to father having prostate cancer in his 50s. Past Medical History Cardiac Medical History: Reports: Hypertension Past Surgical History Past Surgical History: Reports: Orthopedic Surgery - Discectomy and spinal fusion L5-S1 2009 in [place], ACL repair, Other - Back surgery, left knee surgery Social History Smoking Status: Never Smoker Frequency of Alcohol Use: Occasional Hx Recreational Drug Use: No Hx Prescription Drug Abuse: No Family History Family History: Reviewed & Not Pertinent Parental Family History Reviewed: Yes Children Family History Reviewed: Yes Sibling(s) Family History Reviewed.: Yes Medication/Allergy Home Medications: Amlodipine Besylate [Amlodipine Besylate] 1 tab PO DAILY 02/13/18 Epinephrine [Epipen 2-Librado] 0.3 mg IJ ASDIR PRN #1 auto.injct 02/13/18 Pantoprazole Sodium 40 mg PO DAILY 02/13/18 Sildenafil Citrate [Viagra] 100 mg PO DAILY PRN 02/13/18 Ondansetron [Zofran Odt 4 mg Tablet] 1 - 2 tab PO Q4H PRN #15 tab.rapdis Allergies/Adverse Reactions: ibuprofen Allergy (Verified 03/01/18 11:11) Review of Systems Constitutional: PRESENT: as per HPI, fatigue, night sweats, weakness Eyes: ABSENT: visual disturbances Ears: ABSENT: hearing changes Nose, Mouth, and Throat: PRESENT: other - Patient has had some congestion cough Gastrointestinal: PRESENT: as per HPI Genitourinary: ABSENT: dysuria, hematuria Musculoskeletal: ABSENT: joint swelling Integumentary: ABSENT: rash, wounds Neurological: ABSENT: abnormal gait, abnormal speech, confusion, dizziness, focal weakness, syncope Psychiatric: ABSENT: anxiety, depression, homidical ideation, suicidal ideation Endocrine: ABSENT: cold intolerance, heat intolerance, polydipsia, polyuria Physical Exam Vital Signs: Temp Pulse Resp BP Pulse Ox 97.9 F 74 16 119/82 99 03/01/18 11:16 03/01/18 11:16 03/01/18 11:16 03/01/18 11:16 03/01/18 11:16 Intake & Output 02/28/18 03/01/18 03/02/18 06:59 06:59 06:59 Weight 117.3 kg General appearance: PRESENT: no acute distress Head exam: PRESENT: normocephalic Eye exam: PRESENT: EOMI Mouth exam: PRESENT: dry mucosa Neck exam: PRESENT: full ROM, other - No adenopathy Respiratory exam: PRESENT: clear to auscultation yesy Cardiovascular exam: PRESENT: RRR Pulses: PRESENT: normal carotid pulses, normal radial pulses, normal femoral pulses GI/Abdominal exam: PRESENT: other - Soft; no peritoneal signs no rigidity; minimal right upper quadrant tenderness. Only to deep palpation. No hernias Gentrourinary exam: PRESENT: other - No hernias Extremities exam: PRESENT: other - Scar right lower extremity consistent with previous trauma Musculoskeletal exam: PRESENT: full ROM Neurological exam: PRESENT: alert, awake, oriented to person, oriented to place , oriented to time, oriented to situation Psychiatric exam: PRESENT: appropriate affect Results Laboratory Results: 03/01/18 03/01/18 12:07 12:07 WBC 1.7 L D RBC 4.94 Hgb 15.2 Hct 43.7 MCV 88 MCH 30.8 MCHC 34.9 RDW 12.7 Plt Count 66 L Seg Neutrophils % Not Reportable Lymphocytes % Not Reportable Monocytes % Not Reportable Eosinophils % Not Reportable Basophils % Not Reportable Absolute Neutrophils Not Reportable Absolute Lymphocytes Not Reportable Absolute Monocytes Not Reportable Absolute Eosinophils Not Reportable Absolute Basophils Not Reportable Sodium 140.2 Potassium 3.4 L Chloride 96 L Carbon Dioxide 33 H Anion Gap 11 BUN 13 Creatinine 1.20 Est GFR ( Amer) > 60 Est GFR (Non-Af Amer) > 60 Glucose 110 Calcium 9.2 Total Bilirubin 1.6 H AST 148 H ALT 123 H Alkaline Phosphatase 84 Total Protein 6.8 Albumin 4.0 Lipase 32.9 Assessment & Plan - Diagnosis (1) Nausea & vomiting Qualifiers: Vomiting Intractability: unspecified Is this a current diagnosis for this admission?: Yes Plan: Subacute possibly even chronic evolving problem and otherwise healthy white male consisting of fatigue, nausea vomiting anorexia night sweats; abnormal liver function studies neutropenia and thrombocytopenia and bandemia all concerning for underlying lymphatic or infectious process Recommendations: 1. Keep n.p.o., fluid resuscitate, empiric dose of antibiotics 1 2. Obtain imaging studies including CT scan abdomen and pelvis with oral and IV contrast 3. We will following consultation with you. No immediate indication for surgical time. 4. Explained the above to the patient and his . They agreed to proceed with the workup. (2) Fatigue Qualifiers: Fatigue type: unspecified Qualified Code(s): R53.83 - Other fatigue Is this a current diagnosis for this admission?: Yes (3) Thrombocytopenia Is this a current diagnosis for this admission?: Yes (4) Leucopenia Qualifiers: Leukopenia type: neutropenia Is this a current diagnosis for this admission?: Yes (5) Elevated liver function tests Is this a current diagnosis for this admission?: Yes (6) BRYANNA (acute kidney injury) Is this a current diagnosis for this admission?: Yes - Time Time Spent: 50 to 70 Minutes Critical Time spent with patient: 15-24 minutes Anticipated discharge: Home
[2018-03-01 14:25] LABS: ALANINE AMINOTRANSFERASE 119 U/L (21-72); ALBUMIN 3.9 g/dL (3.5-5.0); ALKALINE PHOSPHATASE 81 U/L (38-126); ANION GAP 11 (5-19); ASPARTATE AMINO TRANSFERASE 139 U/L (17-59); BILIRUBIN,TOTAL 1.8 mg/dL (0.2-1.3); BLOOD UREA NITROGEN 13 mg/dL (7-20); CALCIUM 9.1 mg/dL (8.4-10.2); CARBON DIOXIDE 35 mmol/L (22-30); CHLORIDE 95 mmol/L (98-107); GLUCOSE 109 mg/dL (75-110); POTASSIUM 3.3 mmol/L (3.6-5.0); SODIUM 140.9 mmol/L (137-145); TOTAL PROTEIN 6.7 g/dL (6.3-8.2)
[2018-03-01 14:27] LABS: PLATELET COUNT 66 10^3/uL (150-450)
[2018-03-01 14:30] LABS: ABSOLUTE LYMPHOCYTES# (MANUAL) 0.4 10^3/uL (0.5-4.7); ABSOLUTE MONOCYTES # (MANUAL) 0.3 10^3/uL (0.1-1.4); ABSOLUTE NEUTROPHILS# (MANUAL) 1.3 10^3/uL (1.7-8.2); BAND NEUTROPHILS % (MANUAL) 11 % (3-5); BASOPHILS % (MANUAL) 1 % (0-2); EOSINOPHILS % (MANUAL) 1 % (0-6); LYMPHOCYTES % (MANUAL) 18 % (13-45); MONOCYTES % (MANUAL) 14 % (3-13); SEGMENTED NEUTROPHILS % (MAN) 55 % (42-78); TOTAL CELLS COUNTED 100
[2018-03-01 14:33] LABS: PLATELET COMMENT DECREASED; RBC MORPHOLOGY COMMENT NORMO-CYTIC/CHROMIC
--- NOTE | 2018-03-01 15:49 | RADIOLOGY REPORT (SQ) ---
EXAM DESCRIPTION: CT CHEST WITH COMPLETED DATE/TIME: 03/01/2018 3:31 pm REASON FOR STUDY: fever COMPARISON: None. TECHNIQUE: CT scan of the chest performed using helical scanning technique with dynamic intravenous contrast injection. Images reviewed with lung, soft tissue and bone windows. Reconstructed coronal and sagittal MPR images reviewed. All images stored on PACS. All CT scanners at this facility use dose modulation, iterative reconstruction, and/or weight based d osing when appropriate to reduce radiation dose to as low as reasonably achievable (ALARA). [facility]: Dose Right [facility]: CareDose [facility]: Dose Right [facility]: Teradose 4D [facility]: [place] CONTRAST TYPE AND DOSE: 100 mL Isovue 370 RENAL FUNCTION: Creatinine 1.2 RADIATION DOSE: . LIMITATIONS: None. FINDINGS: LUNGS AND PLEURA: No opacities, nodules, masses. No pneumothorax. No effusions. HILAR AND MEDIASTINAL STRUCTURES: No identified masses or abnormal nodes. HEART AND VASCULAR STRUCTURES: No aneurysm or dissection. No central pulmonary emboli. No pericardi al effusion. HARDWARE: None in the chest. UPPER ABDOMEN: See results under abdominal CT scan THYROID AND OTHER SOFT TISSUES: No masses. No adenopathy. BONES: No significant finding. OTHER: No other significant finding. IMPRESSION: No significant intrathoracic abnormalities were identified. Findings as noted above TECHNICAL DOCUMENTATION: JOB ID: [id number] Quality ID # [id number]: Final reports with documentation of one or more dose reduction techniques (e.g., Au tomated exposure control, adjustment of the mA and/or kV according to patient size, use of iterative reconstruction technique) 2010 [employer]- All Rights Reserved Reading location - IP/workstation name: [email or web address]
--- NOTE | 2018-03-01 16:00 | RADIOLOGY REPORT (SQ) ---
EXAM DESCRIPTION: CT ABD/PELVIS WITH IV ORAL COMPLETED DATE/TIME: 03/01/2018 3:31 pm REASON FOR STUDY: abd pain, fever ovmiting COMPARISON: Abdominal ultrasound dated 03/01/2018 TECHNIQUE: CT scan of the abdomen and pelvis performed using helical scanning technique with dynamic intravenous contrast injection and oral contrast. Images reviewed with lung, soft tissue, and bone w indows. Reconstructed coronal and sagittal MPR images reviewed. Delayed images for evaluation of the urinary system also acquired. All images stored on PACS. All CT scanners at this facility use dose modulation, iterative reconstruction, and/or weight based d osing when appropriate to reduce radiation dose to as low as reasonably achievable (ALARA). [facility]: Dose Right [facility]: CareDose [facility]: Dose Right [facility]: Teradose 4D [facility]: [place] CONTRAST TYPE AND DOSE: contrast/concentration: Isovue 370.00 mg/ml; Total Contrast Delivered: 100.0 ml; Total Saline Delivered: 43.7 ml RENAL FUNCTION: Creatinine 1.2 RADIATION DOSE: CT Rad equipment meets quality standard of care and radiation dose reduction techniq ues were employed. CTDIvol: 20.9 - 21.9 mGy. DLP: 2639 mGy-cm.. LIMITATIONS: None. FINDINGS: LOWER CHEST: See results under chest CT scan LIVER: Normal size. No masses. No dilated ducts. There is fatty infiltration of the liver which was described on the recent abdominal ultrasound. SPLEEN: The spleen appears enlarged without focal splenic abnormalities being identified. PANCREAS: No masses. No significant calcifications. No adjacent inflammation or peripancreatic fluid collections. Pancreatic duct not dilated. GALLBLADDER: No identified stones by CT criteria. No inflammatory changes to suggest cholecystitis. ADRENAL GLANDS: No significant masses or asymmetry. RIGHT KIDNEY AND URETER: No solid masses. No significant calcifications. No hydronephrosis or hyd roureter. LEFT KIDNEY AND URETER: No solid masses. No significant calcifications. No hydronephrosis or hydr oureter. AORTA AND VESSELS: No aneurysm. No dissection. Renal arteries, SMA, celiac without stenosis. RETROPERITONEUM: No retroperitoneal adenopathy, hemorrhage or masses. BOWEL AND PERITONEAL CAVITY: No masses or inflammatory changes. No free fluid or peritoneal masses. APPENDIX: Normal. PELVIS: No mass. No free fluid. Normal bladder. ABDOMINAL WALL: No abdominal wall masses. No hernias. BONES: Postsurgical changes are identified at the lumbar sacral junction with orthopedic hardware. OTHER: No other significant finding. IMPRESSION: Fatty infiltration of the liver. The spleen appears enlarged without focal splenic abno rmalities being identified. Other findings as noted above. TECHNICAL DOCUMENTATION: JOB ID: [id number] Quality ID # [id number]: Final reports with documentation of one or more dose reduction techniques (e.g., Au tomated exposure control, adjustment of the mA and/or kV according to patient size, use of iterative reconstruction technique) 2010 [employer]- All Rights Reserved Reading location - IP/workstation name: [email or web address]
--- NOTE | 2018-03-01 16:21 | RADIOLOGY REPORT (SQ) ---
EXAM DESCRIPTION: U/S ABDOMEN LIMITED W/O DOP COMPLETED DATE/TIME: 03/01/2018 3:27 pm REASON FOR STUDY: RUQ, vomiting, elevated liver enzymes COMPARISON: None. TECHNIQUE: Dynamic and static grayscale images acquired of the abdomen and recorded on PACS. Additio nal selected color Doppler and spectral images recorded. LIMITATIONS: Study is limited due to overlying bowel gas. FINDINGS: PANCREAS: The pancreas could not be visualized overlying bowel gas P LIVER: Echotexture is coarse with increased echogenicity consistent with fatty infiltration. LIVER VASCULATURE: Normal directional flow of the main portal vein. GALLBLADDER: Small echogenic focus is identified which has the appearance of a small gallstone. Yolis l wall thickness. No pericholecystic fluid. ULTRASOUND-DETECTED WICK'S SIGN: Negative. INTRAHEPATIC DUCTS AND COMMON DUCT: CBD and intrahepatic ducts normal caliber. No filling defects. INFERIOR VENA CAVA: Normal flow. AORTA: No aneurysm. RIGHT KIDNEY: 10.8 cm in length Normal echogenicity. No solid or suspicious masses. No hydrone phrosis. No calcifications. PERITONEAL AND RIGHT PLEURAL SPACE: No ascites or effusions. OTHER: No other significant finding. IMPRESSION: FATTY INFILTRATION OF THE LIVER. Small echogenic focus in the gallbladder which has the appearance of a small gallstone. No other significant intra-abdominal abnormalities were identified . Other findings as noted above TECHNICAL DOCUMENTATION: JOB ID: [id number]- All Rights Reserved Reading location - IP/workstation name: [email or web address]
--- NOTE | 2018-03-01 17:57 | PDOC H&P ---
History of Present Illness Admission Date/PCP: 03/01/18 16:52 MARCO ANTONIO CHAVEZ PA-C Patient complains of: Nausea and vomiting 1 week History of Present Illness: AARON LAWRENCE is a 52 year old male with past medical history only significant for hypertension, ED, and allergic rhinitis. He now presents to the ED with nausea and vomiting for about 1 week. He also reports fever and chills. He reports diaphoresis with his chills. He initially presented to the ED about 2 days ago and found to have mild renal insufficiency. He was treated with IV fluid and discharged on Zofran. On representing to the ED today, he was found to have worsening renal failure as well as neutropenia with initial WBC 1.7 and bands of 30. He also had abnormal LFTs. He was treated with IV Zofran, 2 L IV fluid with WBC improving slightly to 2 and bandemia improving to 11. CT of the abdomen/pelvis/lungs without significant abnormality. Surgical consult was obtained by ED physician and this was thought to be nonsurgical at this time. Patient denies weight loss, no hematemesis, no rectal bleeding. Denies IV drug use. Denies sick contacts. Denies diarrhea. Has not eaten any unusual or poorly groomed. No recent travel. Denies binge or significant drinking of alcohol. Denies trauma. Received a dose of Zosyn in the ED after cultures were done and patient was referred to the hospitalist service for admission. Past Medical History Cardiac Medical History: Reports: Hypertension Past Surgical History Past Surgical History: Reports: Orthopedic Surgery - Discectomy and spinal fusion L5-S1 2009 in [place], ACL repair, Other - Back surgery, left knee surgery Social History Information Source: Patient Smoking Status: Never Smoker Frequency of Alcohol Use: Occasional Hx Recreational Drug Use: No Hx Prescription Drug Abuse: No Family History Family History: Reviewed & Not Pertinent Parental Family History Reviewed: Yes Children Family History Reviewed: Yes Sibling(s) Family History Reviewed.: Yes Medication/Allergy Home Medications: Amlodipine Besylate [Amlodipine Besylate] 5 mg PO DAILY 02/13/18 Epinephrine [Epipen 2-Librado] 0.3 mg IJ ASDIR PRN #1 auto.injct 02/13/18 Pantoprazole Sodium 40 mg PO DAILY 02/13/18 Sildenafil Citrate [Viagra] 100 mg PO DAILY PRN 02/13/18 Fexofenadine HCl [Brandie Allergy] 180 mg PO DAILYP PRN 03/01/18 Ondansetron [Zofran Odt 4 mg Tablet] 4 mg PO Q4 03/01/18 Allergies/Adverse Reactions: ibuprofen Allergy (Intermediate, Verified 03/01/18 18:57) WHOLE BODY SWELLING BEE STING Allergy (Mild, Uncoded 03/01/18 18:57) SITE SWELLING Review of Systems Review of Systems: CONSTITUTIONAL : Fever, chills -- No; unexpalined fatigue -- No EENT: Denies eye, ear, throat, or mouth pain or symptoms. Denies nasal or sinus congestion or discharge. Denies throat, tongue, or mouth swelling or difficulty swallowing. CARDIOVASCULAR: Denies chest pain. No racing heart RESPIRATORY: Denies cough, no shortness of breath, difficulty breathing. GASTROINTESTINAL: As in HPI. GENITOURINARY: Urinary symptoms -- no. MUSCULOSKELETAL: No acute weakness SKIN: Denies rash, lesions or sores. HEMATOLOGIC : Denies easy bruising or bleeding. LYMPHATIC: Denies swollen, enlarged glands. NEUROLOGICAL: New weakness, headaches, slured speach - No PSYCHIATRIC: Changes anxiety or stress, depression, suicidal ideation, or homicidal ideation -- No ALL OTHER SYSTEMS REVIEWED AND NEGATIVE. Physical Exam Vital Signs: Temp Pulse Resp BP Pulse Ox 97.9 F 74 16 119/82 99 03/01/18 11:16 03/01/18 11:16 03/01/18 11:16 03/01/18 11:16 03/01/18 11:16 GENERAL: Well-developed, no acute distress HEENT: Normocephalic/atraumatic, no jaundice NECK supple, no JVD CARDIOVASCULAR: RRR, normal S1-S2 LUNGS: CTA bilaterally ABDOMEN: Soft, NT, NL bowel sounds EXTREMITIES: No edema, clubbing, cyanosis NEUROLOGICAL: Alert, oriented x 3, nonfocal Results Laboratory Results: 03/01/18 03/01/18 12:07 12:07 WBC 1.7 L D RBC 4.94 Hgb 15.2 Hct 43.7 MCV 88 MCH 30.8 MCHC 34.9 RDW 12.7 Plt Count 66 L Seg Neutrophils % Not Reportable Lymphocytes % Not Reportable Monocytes % Not Reportable Eosinophils % Not Reportable Basophils % Not Reportable Absolute Neutrophils Not Reportable Absolute Lymphocytes Not Reportable Absolute Monocytes Not Reportable Absolute Eosinophils Not Reportable Absolute Basophils Not Reportable Sodium 140.2 Potassium 3.4 L Chloride 96 L Carbon Dioxide 33 H Anion Gap 11 BUN 13 Creatinine 1.20 Est GFR ( Amer) > 60 Est GFR (Non-Af Amer) > 60 Glucose 110 Calcium 9.2 Total Bilirubin 1.6 H AST 148 H ALT 123 H Alkaline Phosphatase 84 Total Protein 6.8 Albumin 4.0 Lipase 32.9 Impressions: Abdomen/Pelvis CT 03/01/18 00:00 IMPRESSION: Fatty infiltration of the liver. The spleen appears enlarged without focal splenic abnormalities being identified. Other findings as noted above. Abdomen Ultrasound 03/01/18 13:03 IMPRESSION: FATTY INFILTRATION OF THE LIVER. Small echogenic focus in the gallbladder which has the appearance of a small gallstone. No other significant intra-abdominal abnormalities were identified. Other findings as noted above Chest CT 03/01/18 14:03 IMPRESSION: No significant intrathoracic abnormalities were identified. Findings as noted above Assessment & Plan - Diagnosis (1) Intractable nausea and vomiting Qualifiers: Vomiting type: unspecified Qualified Code(s): R11.2 - Nausea with vomiting , unspecified Is this a current diagnosis for this admission?: Yes Plan: This may very well be viral gastroenteritis. Acute viral hepatitis serologies has already been ordered. We will treat with IV Zofran as needed, continue IV hydration, and other patient denies diarrhea. symptomatic care at this time. Patient denies diarrhea. Blood cultures have been ordered. Will follow-up result. Will hold off further antibiotics at this time. (2) Elevated liver function tests Is this a current diagnosis for this admission?: Yes Plan: Unsure of etiology at this time. Check viral hepatitis serologies. Ultrasound also revealed fatty liver. Counseled on weight loss regimen after acute illness over. (3) Leucopenia Qualifiers: Leukopenia type: neutropenia Is this a current diagnosis for this admission?: Yes Plan: Etiology may be viral. Monitor. Denies significant alcohol use. (4) Thrombocytopenia Is this a current diagnosis for this admission?: Yes Plan: Questionable etiology. Again, could be viral. Again, denies significant alcohol use. Will continue to monitor. Consider hematology consult if no continued improvement. -We will hold off Lovenox for DVT prophylaxis and use mechanical device instead. (5) BRYANNA (acute kidney injury) Is this a current diagnosis for this admission?: Yes Plan: This is mild at this time likely because he received IV fluid in the ED 2 days ago. We will continue IV fluid and continue to trend level. (6) Essential hypertension Is this a current diagnosis for this admission?: Yes Plan: Blood pressure is okay at this time. Will hold antihypertensive today and start in the morning if patient stable/improving. (7) Allergic rhinitis Is this a current diagnosis for this admission?: Yes Plan: Continue home regimen - Inpatient Certification Based on my medical assessment, after consideration of the patient's comorbidities, presenting symptoms, or acuity I expect that the services needed warrant INPATIENT care.: Yes I certify that my determination is in accordance with my understanding of Medicare's requirements for reasonable and necessary INPATIENT services [42 CFR 412.3e].: Yes Medical Necessity: Failure to Improve With Outpatient Therapy, Need Close Monitoring Due to Risk of Patient Decompensation, Need For IV Fluids
[2018-03-01 19:03] LABS: APPEARANCE,URINE CLEAR; BILIRUBIN,URINE NEGATIVE (NEGATIVE); GLUCOSE, URINE NEGATIVE (NEGATIVE); KETONES,URINE NEGATIVE (NEGATIVE); LEUKOCYTE ESTERASE,URINE NEGATIVE (NEGATIVE); NITRITE,URINE NEGATIVE (NEGATIVE); PROTEIN,URINE NEGATIVE (NEGATIVE)
[2018-03-01 19:05] LABS: COLOR,URINE DARK YELLOW; URINE SPECIFIC GRAVITY > 1.060
[2018-03-01] MEDS: ONDANSETRON HCL INJ/PF 4 MG/2 ML SDV IV PRN (20:32)
[2018-03-01] MEDS: NORMAL SALINE 1000 ML 1,000 ML IV PRN ×3 (20:33→22:58)
[2018-03-01] MEDS ORDERED: (PENDING PHARMACY ID) (Fexofenadine Hcl [Allegra Allergy] 180 MG) PO PRN (21:00)
[2018-03-01] MEDS ORDERED: LORATADINE 10 MG TABLET PO PRN (21:46)
[2018-03-01] MEDS: FAMOTIDINE 20 MG TABLET PO SCH (21:56)
[2018-03-02 04:37] LABS: HEPATITIS A AB IGM Negative (Negative); HEPATITIS B CORE AB IGM Negative (Negative); HEPATITS B SURFACE ANTIGEN Negative (Negative)
[2018-03-02] MEDS: LANSOPRAZOLE 30 MG TAB.RAP.DR PO SCH (06:13)
[2018-03-02] MEDS: ONDANSETRON HCL INJ/PF 4 MG/2 ML SDV IV PRN ×5 (06:13→23:35)
[2018-03-02 07:54] LABS: HEMOGLOBIN 13.4 g/dL (13.5-17.0); MEAN CORPUSCULAR HEMOGLOBIN 30.1 pg (27.0-33.4); MEAN CORPUSCULAR HGB CONC 34.4 g/dL (32.0-36.0); MEAN CORPUSCULAR VOLUME 88 fl (80-97); RED BLOOD COUNT 4.45 10^6/uL (4.35-5.55); RED CELL DISTRIBUTION WIDTH 12.7 % (11.5-14.0)
[2018-03-02 08:15] LABS: ALANINE AMINOTRANSFERASE 113 U/L (21-72); ALBUMIN 3.3 g/dL (3.5-5.0); ALKALINE PHOSPHATASE 74 U/L (38-126); ANION GAP 10 (5-19); ASPARTATE AMINO TRANSFERASE 119 U/L (17-59); BILIRUBIN,TOTAL 1.6 mg/dL (0.2-1.3); BLOOD UREA NITROGEN 8 mg/dL (7-20); CALCIUM 8.1 mg/dL (8.4-10.2); CARBON DIOXIDE 30 mmol/L (22-30); CHLORIDE 98 mmol/L (98-107); GLUCOSE 96 mg/dL (75-110); POTASSIUM 3.3 mmol/L (3.6-5.0); TOTAL PROTEIN 5.8 g/dL (6.3-8.2)
[2018-03-02 08:24] LABS: PLATELET COUNT 54 10^3/uL (150-450)
[2018-03-02 08:33] LABS: WHITE BLOOD COUNT 1.4 10^3/uL (4.0-10.5)
[2018-03-02] MEDS: FAMOTIDINE 20 MG TABLET PO SCH ×2 (09:10→22:11)
[2018-03-02] MEDS: AMLODIPINE BESYLATE 5 MG TABLET PO SCH (09:10)
[2018-03-02] MEDS: NORMAL SALINE 1000 ML 1,000 ML IV PRN ×2 (09:11→18:45)
[2018-03-02 15:19] LABS: HEPATITIS C VIRUS ANTIBODY 0.1 s/co ratio (0.0-0.9)
--- NOTE | 2018-03-02 18:07 | PDOC PROGRESS REPORT ---
Subjective Progress Note for:: 03/02/18 Subjective:: Still with nausea, no vomiting. Feels fatigued. Has poor appetite. No chest pain or shortness of breath, no palpitations at this time. Reason For Visit: INTRACTABLE N/V,ABNORMAL LFTS,LEUKOPENIA Physical Exam Vital Signs: Temp Pulse Resp BP Pulse Ox 98.1 F 72 20 132/86 H 99 03/02/18 11:26 03/02/18 11:26 03/02/18 11:26 03/02/18 11:26 03/02/18 11:26 Intake & Output 03/01/18 03/02/18 03/03/18 06:59 06:59 06:59 Intake Total 2692 636 Balance 2692 636 Weight 110.4 kg GEN: NAD, well-developed, well-nourished CV: RRR, NL S1S2 LUNGS: CTA bilaterally ABDOMEN Soft, NT, +BS EXTERMITIES: No e/c/c NEURO: Alert, oriented 3, nonfocal Results Laboratory Results: 03/02/18 06:42 03/02/18 06:42 03/01/18 03/02/18 03/02/18 18:40 06:42 06:42 WBC 1.4 L* RBC 4.45 Hgb 13.4 L Hct 39.0 MCV 88 MCH 30.1 MCHC 34.4 RDW 12.7 Plt Count 54 L Sodium 138.0 Potassium 3.3 L Chloride 98 Carbon Dioxide 30 Anion Gap 10 BUN 8 Creatinine 0.89 Est GFR ( Amer) > 60 Est GFR (Non-Af Amer) > 60 Glucose 96 Calcium 8.1 L Magnesium 1.7 Total Bilirubin 1.6 H AST 119 H ALT 113 H Alkaline Phosphatase 74 Total Protein 5.8 L Albumin 3.3 L Urine Color DARK YELLOW Urine Appearance CLEAR Urine pH 5.0 Ur Specific [place] > 1.060 Urine Protein NEGATIVE Urine Glucose (UA) NEGATIVE Urine Ketones NEGATIVE Urine Blood NEGATIVE Urine Nitrite NEGATIVE Ur Leukocyte Esterase NEGATIVE Urine WBC (Auto) 1 Urine RBC (Auto) 1 Impressions: Abdomen/Pelvis CT 03/01/18 00:00 IMPRESSION: Fatty infiltration of the liver. The spleen appears enlarged without focal splenic abnormalities being identified. Other findings as noted above. Abdomen Ultrasound 03/01/18 13:03 IMPRESSION: FATTY INFILTRATION OF THE LIVER. Small echogenic focus in the gallbladder which has the appearance of a small gallstone. No other significant intra-abdominal abnormalities were identified. Other findings as noted above Chest CT 03/01/18 14:03 IMPRESSION: No significant intrathoracic abnormalities were identified. Findings as noted above Assessment & Plan - Plan Summary Plan Summary: (1) Intractable nausea and vomiting Qualifiers: Vomiting type: unspecified Qualified Code(s): R11.2 - Nausea with vomiting , unspecified Is this a current diagnosis for this admission?: Yes Plan: This may very well be viral gastroenteritis. Acute viral hepatitis negative. HIV negative. We will continue with IV Zofran as needed, continue IV hydration, and others. Patient denies diarrhea. Continue symptomatic care at this time. Blood cultures have been ordered. Will follow-up result. Will hold off further antibiotics at this time. (2) Elevated liver function tests Is this a current diagnosis for this admission?: Yes Plan: Unsure of etiology at this time. Viral hepatitis serologies negative. Ultrasound also revealed fatty liver. Counseled on weight loss regimen after acute illness over. (3) Leucopenia Qualifiers: Leukopenia type: neutropenia Is this a current diagnosis for this admission?: Yes Plan: Etiology may be viral. Monitor. Denies significant alcohol use. Hematology consult, Dr. Angulo. (4) Thrombocytopenia Is this a current diagnosis for this admission?: Yes Plan: Questionable etiology. Again, could be viral. Again, denies significant alcohol use. Will continue to monitor. Consider hematology consult if no continued improvement. -We will hold off Lovenox for DVT prophylaxis and use mechanical device instead. -Hematology consult, Dr. Angulo. (5) BRYANNA (acute kidney injury) Is this a current diagnosis for this admission?: Yes Plan: This is mild at this time likely because he received IV fluid in the ED 2 days ago. We will continue IV fluid and continue to trend level. Creatinine continues to improve. (6) Essential hypertension Is this a current diagnosis for this admission?: Yes Plan: Blood pressure is okay at this time. Will hold antihypertensive today and start in the morning if patient stable/improving. (7) Allergic rhinitis Is this a current diagnosis for this admission?: Yes Plan: Continue home regimen (8) Hypokalemia Is this a current diagnosis for this admission?: Yes Plan: Will replete, f/u chem 7 in a.m.
[2018-03-02] MEDS ORDERED: POTASSIUM CHLORIDE 10 MEQ TABLET.SA PO ONE (18:30)
--- NOTE | 2018-03-02 20:01 | PDOC PROGRESS REPORT ---
Subjective Progress Note for:: 03/02/18 Subjective:: This is a 52-year-old male with persistent nausea and vomiting. Patient denies any abdominal pain at this time. He also denies chest pain, shortness of breath , fevers, chills, dizziness, orthostasis, blurry vision. Reason For Visit: INTRACTABLE N/V,ABNORMAL LFTS,LEUKOPENIA Physical Exam Vital Signs: Temp Pulse Resp BP Pulse Ox 98.1 F 72 20 132/86 H 99 03/02/18 11:26 03/02/18 11:26 03/02/18 11:26 03/02/18 11:26 03/02/18 11:26 Intake & Output 03/01/18 03/02/18 03/03/18 06:59 06:59 06:59 Intake Total 2692 636 Balance 2692 636 Weight 110.4 kg General appearance: PRESENT: no acute distress Head exam: PRESENT: atraumatic, normocephalic Eye exam: PRESENT: EOMI, PERRLA Mouth exam: PRESENT: moist, neck supple Teeth exam: ABSENT: poor dentation Neck exam: ABSENT: lymphadenopathy, meningismus, tenderness, thyromegaly, tracheal deviation Respiratory exam: PRESENT: clear to auscultation yesy. ABSENT: chest wall tenderness, tachypnea Cardiovascular exam: PRESENT: RRR Pulses: PRESENT: normal radial pulses Vascular exam: PRESENT: normal capillary refill. ABSENT: pallor GI/Abdominal exam: PRESENT: soft. ABSENT: distended, guarding, tenderness Rectal exam: PRESENT: deferred Extremities exam: ABSENT: pedal edema Musculoskeletal exam: PRESENT: normal inspection Neurological exam: PRESENT: alert, awake, oriented to person, oriented to place , oriented to time, oriented to situation, CN II-XII grossly intact. ABSENT: motor sensory deficit Psychiatric exam: ABSENT: agitated, anxious, depressed Skin exam: ABSENT: cyanosis, erythema, pallor Results Laboratory Results: 03/02/18 06:42 03/02/18 06:42 03/02/18 03/02/18 06:42 06:42 WBC 1.4 L* RBC 4.45 Hgb 13.4 L Hct 39.0 MCV 88 MCH 30.1 MCHC 34.4 RDW 12.7 Plt Count 54 L Sodium 138.0 Potassium 3.3 L Chloride 98 Carbon Dioxide 30 Anion Gap 10 BUN 8 Creatinine 0.89 Est GFR ( Amer) > 60 Est GFR (Non-Af Amer) > 60 Glucose 96 Calcium 8.1 L Magnesium 1.7 Total Bilirubin 1.6 H AST 119 H ALT 113 H Alkaline Phosphatase 74 Total Protein 5.8 L Albumin 3.3 L Impressions: Abdomen/Pelvis CT 03/01/18 00:00 IMPRESSION: Fatty infiltration of the liver. The spleen appears enlarged without focal splenic abnormalities being identified. Other findings as noted above. Abdomen Ultrasound 03/01/18 13:03 IMPRESSION: FATTY INFILTRATION OF THE LIVER. Small echogenic focus in the gallbladder which has the appearance of a small gallstone. No other significant intra-abdominal abnormalities were identified. Other findings as noted above Chest CT 03/01/18 14:03 IMPRESSION: No significant intrathoracic abnormalities were identified. Findings as noted above Assessment & Plan - Plan Summary Plan Summary: This is a 52-year-old male with nausea of undetermined etiology. The patient also has severe neutropenia. Currently, the patient has no indication for surgical intervention. His abdominal ultrasound and CT scan are unremarkable. I will sign off, because at this time I have nothing further to offer. Please feel free to renotify with any questions or concerns.
[2018-03-03] MEDS ORDERED: ACETAMINOPHEN 325 MG TABLET ONE ×2 (04:33→18:36)
[2018-03-03] MEDS: NORMAL SALINE 1000 ML 1,000 ML IV PRN (04:49)
[2018-03-03] MEDS: ONDANSETRON HCL INJ/PF 4 MG/2 ML SDV IV PRN ×2 (04:50→09:32)
[2018-03-03 05:08] LABS: HEMATOCRIT 38.8 % (37.9-51.0); HEMOGLOBIN 13.4 g/dL (13.5-17.0); MEAN CORPUSCULAR HEMOGLOBIN 30.2 pg (27.0-33.4); MEAN CORPUSCULAR HGB CONC 34.6 g/dL (32.0-36.0); MEAN CORPUSCULAR VOLUME 87 fl (80-97); RED BLOOD COUNT 4.43 10^6/uL (4.35-5.55); RED CELL DISTRIBUTION WIDTH 12.7 % (11.5-14.0); WHITE BLOOD COUNT 2.3 10^3/uL (4.0-10.5)
[2018-03-03 05:13] LABS: PLATELET COUNT 57 10^3/uL (150-450)
[2018-03-03 05:25] LABS: ANION GAP 9 (5-19); BLOOD UREA NITROGEN 7 mg/dL (7-20); CALCIUM 8.9 mg/dL (8.4-10.2); CARBON DIOXIDE 32 mmol/L (22-30); CHLORIDE 102 mmol/L (98-107); GLUCOSE 127 mg/dL (75-110); POTASSIUM 3.9 mmol/L (3.6-5.0); SODIUM 143.3 mmol/L (137-145)
[2018-03-03 07:10] LABS: ABSOLUTE LYMPHOCYTES# (MANUAL) 1.2 10^3/uL (0.5-4.7); ABSOLUTE MONOCYTES # (MANUAL) 0.2 10^3/uL (0.1-1.4); ABSOLUTE NEUTROPHILS# (MANUAL) 0.8 10^3/uL (1.7-8.2); BAND NEUTROPHILS % (MANUAL) 7 % (3-5); BASOPHILS % (MANUAL) 1 % (0-2); EOSINOPHILS % (MANUAL) 2 % (0-6); LYMPHOCYTES % (MANUAL) 45 % (13-45); MONOCYTES % (MANUAL) 10 % (3-13); SEGMENTED NEUTROPHILS % (MAN) 28 % (42-78); TOTAL CELLS COUNTED 100
[2018-03-03 07:12] LABS: RBC MORPHOLOGY COMMENT NORMO-CYTIC/CHROMIC
[2018-03-03 07:13] LABS: PLATELET COMMENT DECREASED
[2018-03-03] MEDS: LANSOPRAZOLE 30 MG TAB.RAP.DR PO SCH (07:13)
[2018-03-03 08:38] LABS: ALANINE AMINOTRANSFERASE 109 U/L (21-72); ALBUMIN 3.2 g/dL (3.5-5.0); ALKALINE PHOSPHATASE 73 U/L (38-126); ASPARTATE AMINO TRANSFERASE 86 U/L (17-59); BILIRUBIN,DIRECT 0.8 mg/dL (0.0-0.4); BILIRUBIN,TOTAL 1.2 mg/dL (0.2-1.3); TOTAL PROTEIN 5.9 g/dL (6.3-8.2)
[2018-03-03] MEDS: FAMOTIDINE 20 MG TABLET PO SCH ×2 (09:31→21:12)
[2018-03-03] MEDS: AMLODIPINE BESYLATE 5 MG TABLET PO SCH (09:31)
--- NOTE | 2018-03-03 13:09 | PDOC CONSULTATION ---
Consultation Consult Date: 03/03/18 Consult reason:: Hematology consult was requested for patient with pancytopenia. History of Present Illness Admission Date/PCP: 03/01/18 16:52 MARCO ANTONIO CHAVEZ PA-C History of Present Illness: AARON LAWRENCE is a 52 year old male who was in his usual state of health until 6 days ago when he developed sudden nausea and vomiting. He states that a few days prior, his son was sick with the same symptoms. Patient was unable to hold anything down. He presented to the ED 4 days ago and given IV fluids and zofran. He was sent home with zofran, however, his symptoms continued. He presented again 2 days ago and was admitted for further treatment. He states that he has had a fever off and on all week. He has been very weak, little headache. Today, he is feeling much better. He is hungry and is looking forward to trying to eat. Past Medical History Cardiac Medical History: Reports: Hypertension GI Medical History: Reports: Gastroesophageal Reflux Disease Psychiatric Medical History: Denies: Depression Past Surgical History Past Surgical History: Reports: Orthopedic Surgery - Discectomy and spinal fusion L5-S1 2009 in [place], ACL repair, Tonsillectomy, Other - Back surgery, left knee surgery Social History Information Source: Patient Occupation: retired construction. Smoking Status: Never Smoker Frequency of Alcohol Use: Occasional Hx Recreational Drug Use: No Drugs: None Hx Prescription Drug Abuse: No Past Social History Note: He is with 2 children. Family History Family History: Mother living with dementia. Parental Family History Reviewed: Yes - Father of alcohol and pancreatitis. He also had prostate cancer. Children Family History Reviewed: Yes Sibling(s) Family History Reviewed.: Yes Medication/Allergy Home Medications: Amlodipine Besylate [Amlodipine Besylate] 5 mg PO DAILY 02/13/18 Epinephrine [Epipen 2-Librado] 0.3 mg IJ ASDIR PRN #1 auto.injct 02/13/18 Pantoprazole Sodium 40 mg PO DAILY 02/13/18 Sildenafil Citrate [Viagra] 100 mg PO DAILY PRN 02/13/18 Fexofenadine HCl [Brandie Allergy] 180 mg PO DAILYP PRN 03/01/18 Ondansetron [Zofran Odt 4 mg Tablet] 4 mg PO Q4 03/01/18 Allergies/Adverse Reactions: ibuprofen Allergy (Intermediate, Verified 03/01/18 18:57) WHOLE BODY SWELLING BEE STING Allergy (Mild, Uncoded 03/01/18 18:57) SITE SWELLING Review of Systems Constitutional: PRESENT: fever(s), headache(s) Eyes: ABSENT: visual disturbances Ears: ABSENT: hearing changes Nose, Mouth, and Throat: ABSENT: sore throat Cardiovascular: ABSENT: chest pain Respiratory: ABSENT: dyspnea Gastrointestinal: PRESENT: nausea, vomiting. ABSENT: abdominal pain, constipation, diarrhea Genitourinary: ABSENT: dysuria, hematuria Musculoskeletal: PRESENT: muscle weakness Integumentary: ABSENT: rash Neurological: PRESENT: weakness. ABSENT: confusion Psychiatric: ABSENT: anxiety, depression Hematologic/Lymphatic: ABSENT: easy bruising Physical Exam Vital Signs: Temp Pulse Resp BP Pulse Ox 98.1 F 62 16 135/83 H 100 03/03/18 11:20 03/03/18 11:20 03/03/18 11:20 03/03/18 11:20 03/03/18 11:20 Intake & Output 03/02/18 03/03/18 03/04/18 06:59 06:59 06:59 Intake Total 2692 3117 Output Total 1700 Balance 2692 1417 Weight 110.4 kg 110.4 kg General appearance: PRESENT: no acute distress, well-developed, well-nourished Exam: 52 year old male. Head exam: PRESENT: atraumatic, normocephalic Eye exam: PRESENT: PERRLA Ear exam: PRESENT: normal external ear exam Mouth exam: PRESENT: tongue midline Neck exam: ABSENT: lymphadenopathy, tenderness Respiratory exam: PRESENT: clear to auscultation yesy, unlabored Cardiovascular exam: PRESENT: RRR. ABSENT: systolic murmur GI/Abdominal exam: PRESENT: normal bowel sounds, organolmegaly - spleen and liver tips both palpable., soft. ABSENT: tenderness Extremities exam: ABSENT: pedal edema Musculoskeletal exam: PRESENT: normal inspection Neurological exam: PRESENT: alert, awake, oriented to person, oriented to place , oriented to time, oriented to situation Psychiatric exam: PRESENT: appropriate affect Focused psych exam: ABSENT: restlessness Skin exam: PRESENT: normal color Results Laboratory Results: 03/03/18 04:00 03/03/18 04:00 03/03/18 03/03/18 03/03/18 04:00 04:00 04:00 WBC 2.3 L RBC 4.43 Hgb 13.4 L Hct 38.8 MCV 87 MCH 30.2 MCHC 34.6 RDW 12.7 Plt Count 57 L Seg Neutrophils % Not Reportable Lymphocytes % Not Reportable Monocytes % Not Reportable Eosinophils % Not Reportable Basophils % Not Reportable Absolute Neutrophils Not Reportable Absolute Lymphocytes Not Reportable Absolute Monocytes Not Reportable Absolute Eosinophils Not Reportable Absolute Basophils Not Reportable Sodium 143.3 Potassium 3.9 Chloride 102 Carbon Dioxide 32 H Anion Gap 9 BUN 7 Creatinine 0.87 Est GFR ( Amer) > 60 Est GFR (Non-Af Amer) > 60 Glucose 127 H Calcium 8.9 Total Bilirubin 1.2 AST 86 H ALT 109 H Alkaline Phosphatase 73 Total Protein 5.9 L Albumin 3.2 L Impressions: Abdomen/Pelvis CT 03/01/18 00:00 IMPRESSION: Fatty infiltration of the liver. The spleen appears enlarged without focal splenic abnormalities being identified. Other findings as noted above. Abdomen Ultrasound 03/01/18 13:03 IMPRESSION: FATTY INFILTRATION OF THE LIVER. Small echogenic focus in the gallbladder which has the appearance of a small gallstone. No other significant intra-abdominal abnormalities were identified. Other findings as noted above Chest CT 03/01/18 14:03 IMPRESSION: No significant intrathoracic abnormalities were identified. Findings as noted above Assessment & Plan - Diagnosis (1) Pancytopenia Is this a current diagnosis for this admission?: Yes Plan: His CBC in Sep 2016 was normal. His CBC on 02/27/2018 showed WBC 3.1 HGB 17 and PLT 109. ANC was 2.2. Now, ANC <1. His blood smear shows normocytic, normochromic RBCs with platelets decreased in number, but normal in morphology. His WBCs appear to have increase atypical lymphocytes and decreased PMNs. Overall, this looks like an atypical viral infection. I have explained to the patient that I believe his low blood counts are reactive to an external problem, namely, an infection. I would like to continue to monitor him for 1-2 more days, since he is now starting to feel much better. But, if there is no improvement, then I will search for a primary bone marrow problem. I did not see obvious Blasts in his blood smear. - Plan Summary Plan Summary: I will continue to follow him with you. Monitor CBC daily. Please call with concerns.
--- NOTE | 2018-03-03 15:26 | PDOC PROGRESS REPORT ---
Subjective Subjective:: Beginning to feel better today. Tolerated clear liquid diet. Had bowel movement. Denies abdominal pain, no nausea vomiting. No chest pain or shortness of breath, no palpitations at this time. Reason For Visit: INTRACTABLE N/V,ABNORMAL LFTS,LEUKOPENIA Physical Exam Vital Signs: Temp Pulse Resp BP Pulse Ox 98.1 F 62 16 135/83 H 100 03/03/18 11:20 03/03/18 11:20 03/03/18 11:20 03/03/18 11:20 03/03/18 11:20 Intake & Output 03/02/18 03/03/18 03/04/18 06:59 06:59 06:59 Intake Total 2692 3117 1200 Output Total 1700 850 Balance 2692 1417 350 Weight 110.4 kg 110.4 kg GEN: NAD, well-developed, well-nourished CV: RRR, NL S1S2 LUNGS: CTA bilaterally ABDOMEN Soft, NT, +BS EXTERMITIES: No e/c/c NEURO: Alert, oriented 3, nonfocal Results Laboratory Results: 03/03/18 04:00 03/03/18 04:00 03/03/18 03/03/18 03/03/18 04:00 04:00 04:00 WBC 2.3 L RBC 4.43 Hgb 13.4 L Hct 38.8 MCV 87 MCH 30.2 MCHC 34.6 RDW 12.7 Plt Count 57 L Seg Neutrophils % Not Reportable Lymphocytes % Not Reportable Monocytes % Not Reportable Eosinophils % Not Reportable Basophils % Not Reportable Absolute Neutrophils Not Reportable Absolute Lymphocytes Not Reportable Absolute Monocytes Not Reportable Absolute Eosinophils Not Reportable Absolute Basophils Not Reportable Sodium 143.3 Potassium 3.9 Chloride 102 Carbon Dioxide 32 H Anion Gap 9 BUN 7 Creatinine 0.87 Est GFR ( Amer) > 60 Est GFR (Non-Af Amer) > 60 Glucose 127 H Calcium 8.9 Total Bilirubin 1.2 AST 86 H ALT 109 H Alkaline Phosphatase 73 Total Protein 5.9 L Albumin 3.2 L Impressions: Abdomen/Pelvis CT 03/01/18 00:00 IMPRESSION: Fatty infiltration of the liver. The spleen appears enlarged without focal splenic abnormalities being identified. Other findings as noted above. Abdomen Ultrasound 03/01/18 13:03 IMPRESSION: FATTY INFILTRATION OF THE LIVER. Small echogenic focus in the gallbladder which has the appearance of a small gallstone. No other significant intra-abdominal abnormalities were identified. Other findings as noted above Chest CT 03/01/18 14:03 IMPRESSION: No significant intrathoracic abnormalities were identified. Findings as noted above Assessment & Plan - Plan Summary Plan Summary: (1) Intractable nausea and vomiting Qualifiers: Vomiting type: unspecified Qualified Code(s): R11.2 - Nausea with vomiting , unspecified Is this a current diagnosis for this admission?: Yes Plan: Improved. This may very well pain caused by a viral gastroenteritis. Acute viral hepatitis negative. HIV negative. We will continue with IV Zofran as needed, continue IV hydration, and others. Patient is beginning to feel better. Continue symptomatic care at this time. Blood cultures negative to date. Although he received a dose of Zosyn at the ED at presentation, I continue to see no indication for antibiotics at this time. Will continue to hold off further antibiotics at this time. (2) Elevated liver function tests Is this a current diagnosis for this admission?: Yes Plan: Unsure of etiology at this time. Viral hepatitis serologies negative. Ultrasound did revealed fatty liver. LFTs improving. Counseled on weight loss regimen after acute illness over. (3) Leucopenia Qualifiers: Leukopenia type: neutropenia Is this a current diagnosis for this admission?: Yes Plan: Etiology may be viral. Monitor. Denies significant alcohol use. Hematology consult, Dr. Angulo, appreciated. She recommended watch patient another 1-2 days, check daily CBC (4) Thrombocytopenia Is this a current diagnosis for this admission?: Yes Plan: Questionable etiology. Again, could be viral. Again, denies significant alcohol use. Will continue to monitor. Hematology consultation appreciated -We will hold off Lovenox for DVT prophylaxis and contuse mechanical device instead. (5) BRYANNA (acute kidney injury) Is this a current diagnosis for this admission?: Yes Plan: This has not resolved. We will continue IV fluid at this time. DC IV fluid if tolerating oral intake. (6) Essential hypertension Is this a current diagnosis for this admission?: Yes Plan: Blood pressure spikes to 150s systolic. Patient doing better. Will restart home regimen of Norvasc 5 mg daily. (7) Allergic rhinitis Is this a current diagnosis for this admission?: Yes Plan: Continue home regimen (8) Hypokalemia Is this a current diagnosis for this admission?: Yes Plan: Resolved.
[2018-03-03] MEDS: ACETAMINOPHEN 325 MG TABLET PO PRN (18:40)
--- NOTE | 2018-03-04 00:21 | Physician Advisory Note ---
Physician Advisor ProgressNote .: Pursuant to the plan for [facility], I have reviewed the medical record for this patient. Physician Advisor Statement: Please consider documenting, if you agree: 1. What abnormal level of Cr supports dx of BRYANNA - or has BRYANNA been ruled out? Status: viral gastroenteritis is typically Obs until proven otherwise. However , this pt had already failed aggressive outpt tx with IVF & Zofran 2 days before , & since arrival this time has had persistent sx despite 3L of IVF boluses in ED & then ongoing IVF @100; & been needing frequent prn IV Zofran (x5 total on ), with persistent concerning (& worsening) neutropenia & thrombocytopenia. Appears appropriate for change to Inpatient status as of 03/02 pm. Thanks, CK
[2018-03-04] MEDS: LANSOPRAZOLE 30 MG TAB.RAP.DR PO SCH (05:47)
[2018-03-04 07:20] LABS: ALANINE AMINOTRANSFERASE 101 U/L (21-72); ALBUMIN 3.7 g/dL (3.5-5.0); ALKALINE PHOSPHATASE 95 U/L (38-126); ANION GAP 11 (5-19); ASPARTATE AMINO TRANSFERASE 75 U/L (17-59); BILIRUBIN,DIRECT 0.6 mg/dL (0.0-0.4); BILIRUBIN,TOTAL 0.8 mg/dL (0.2-1.3); BLOOD UREA NITROGEN 8 mg/dL (7-20); CALCIUM 8.9 mg/dL (8.4-10.2); CARBON DIOXIDE 29 mmol/L (22-30); CHLORIDE 105 mmol/L (98-107); GLUCOSE 102 mg/dL (75-110); POTASSIUM 3.9 mmol/L (3.6-5.0); SODIUM 144.7 mmol/L (137-145); TOTAL PROTEIN 6.4 g/dL (6.3-8.2)
[2018-03-04 07:33] LABS: ABSOLUTE NEUT (AUTO) 1.3 10^3/uL (1.7-8.2); BASOPHILS % (AUTO) 0.4 % (0-2); EOSINOPHILS % (AUTO) 1.9 % (0-6); HEMOGLOBIN 13.6 g/dL (13.5-17.0); MEAN CORPUSCULAR HEMOGLOBIN 30.3 pg (27.0-33.4); MEAN CORPUSCULAR HGB CONC 34.1 g/dL (32.0-36.0); MEAN CORPUSCULAR VOLUME 88 fl (80-97); MONOCYTES % (AUTO) 9.2 % (3-13); RED CELL DISTRIBUTION WIDTH 12.9 % (11.5-14.0); SEGMENTED NEUTROPHILS % (AUTO) 33.5 % (42-78); TOTAL CELLS COUNTED % (AUTO) 100 %; WHITE BLOOD COUNT 3.8 10^3/uL (4.0-10.5)
[2018-03-04 07:34] LABS: ABSOLUTE EOSINOPHILS # (AUTO) 0.1 10^3/uL (0.0-0.6); ABSOLUTE LYMPHOCYTES (AUTO) 2.1 10^3/uL (0.5-4.7); ABSOLUTE MONOCYTES (AUTO) 0.4 10^3/uL (0.1-1.4); PLATELET COUNT 83 10^3/uL (150-450)
--- NOTE | 2018-03-04 08:00 | PDOC PROGRESS REPORT ---
Subjective Progress Note for:: 03/04/18 Subjective:: Patient is feeling much better today. He ate regular dinner last night and is eating breakfast now. No further nausea. ROS: No chest pain. No diarrhea. He still has mild tenderness over his liver. No dyspnea. Reason For Visit: INTRACTABLE N/V,ABNORMAL LFTS,LEUKOPENIA Physical Exam Vital Signs: Temp Pulse Resp BP Pulse Ox 97.8 F 62 17 140/91 H 100 03/03/18 23:13 03/03/18 23:13 03/03/18 23:13 03/03/18 23:13 03/03/18 23:13 Intake & Output 03/03/18 03/04/18 03/05/18 06:59 06:59 06:59 Intake Total 3117 3800 Output Total 1700 1500 Balance 1417 2300 Weight 110.4 kg 110.5 kg General appearance: PRESENT: no acute distress Eye exam: PRESENT: EOMI Respiratory exam: PRESENT: unlabored GI/Abdominal exam: PRESENT: soft, tenderness Extremities exam: ABSENT: pedal edema Neurological exam: PRESENT: alert, awake Psychiatric exam: PRESENT: appropriate affect Skin exam: PRESENT: normal color Results Laboratory Results: 03/04/18 05:20 03/04/18 05:20 03/03/18 03/04/18 03/04/18 04:00 05:20 05:20 WBC 3.8 L RBC 4.50 Hgb 13.6 Hct 40.0 MCV 88 MCH 30.3 MCHC 34.1 RDW 12.9 Plt Count 83 L Seg Neutrophils % 33.5 L Lymphocytes % 55.0 H Monocytes % 9.2 Eosinophils % 1.9 Basophils % 0.4 Absolute Neutrophils 1.3 L Absolute Lymphocytes 2.1 Absolute Monocytes 0.4 Absolute Eosinophils 0.1 Absolute Basophils 0.0 Sodium 144.7 Potassium 3.9 Chloride 105 Carbon Dioxide 29 Anion Gap 11 BUN 8 Creatinine 0.81 Est GFR ( Amer) > 60 Est GFR (Non-Af Amer) > 60 Glucose 102 Calcium 8.9 Total Bilirubin 1.2 0.8 AST 86 H 75 H ALT 109 H 101 H Alkaline Phosphatase 73 95 Total Protein 5.9 L 6.4 Albumin 3.2 L 3.7 Impressions: Abdomen/Pelvis CT 03/01/18 00:00 IMPRESSION: Fatty infiltration of the liver. The spleen appears enlarged without focal splenic abnormalities being identified. Other findings as noted above. Abdomen Ultrasound 03/01/18 13:03 IMPRESSION: FATTY INFILTRATION OF THE LIVER. Small echogenic focus in the gallbladder which has the appearance of a small gallstone. No other significant intra-abdominal abnormalities were identified. Other findings as noted above Chest CT 03/01/18 14:03 IMPRESSION: No significant intrathoracic abnormalities were identified. Findings as noted above Assessment & Plan - Diagnosis (1) Pancytopenia Is this a current diagnosis for this admission?: Yes Plan: This still appears to be reactive to an acute infection. Most likely viral. Patient and blood counts appear to be improving. I have encouraged him to walk around today. DVT prophylaxis would be OK if patient is to stay, now that his PLT are >75. - Plan Summary Plan Summary: OK for discharge from my standpoint, but I would like to follow CBC over the next few weeks. I will arrange for CBC in my office weekly.
[2018-03-04] MEDS: AMLODIPINE BESYLATE 5 MG TABLET PO SCH (09:14)
[2018-03-04] MEDS: FAMOTIDINE 20 MG TABLET PO SCH (09:14)
[2018-03-04] MEDS: ACETAMINOPHEN 325 MG TABLET PO PRN (09:18)
[2018-03-04 12:07] VITALS: BP 145/91
--- NOTE | 2018-03-04 12:23 | PDOC DISCHARGE SUMMARY ---
General - Admit/Disc Date/PCP Admission Date/Primary Care Provider: 03/01/18 16:52 MARCO ANTONIO CHAVEZ PA-C See by Dr. Neida Godinez for hematology consultation Discharge Date: 03/04/18 - Discharge Diagnosis (1) Systemic viral illness Is this a current diagnosis for this admission?: Yes (2) Allergic rhinitis Is this a current diagnosis for this admission?: Yes (4) Elevated liver function tests Is this a current diagnosis for this admission?: Yes (5) Essential hypertension Is this a current diagnosis for this admission?: Yes (6) Intractable nausea and vomiting Is this a current diagnosis for this admission?: Yes (7) Leucopenia Is this a current diagnosis for this admission?: Yes (8) Thrombocytopenia Is this a current diagnosis for this admission?: Yes (9) BRYANNA (acute kidney injury) Is this a current diagnosis for this admission?: No Summary: This was ruled out - Additional Information Discharge Diet: As Tolerated Discharge Activity: Activity As Tolerated Home Medications: Amlodipine Besylate 5 mg PO DAILY 02/13/18 Epinephrine [Epipen 2-Librado] 0.3 mg IJ ASDIR PRN #1 auto.injct 02/13/18 Pantoprazole Sodium 40 mg PO DAILY 02/13/18 Sildenafil Citrate [Viagra] 100 mg PO DAILY PRN 02/13/18 Fexofenadine HCl [Brandie Allergy] 180 mg PO DAILYP PRN 03/01/18 Ondansetron [Zofran Odt 4 mg Tablet] 4 mg PO Q4 03/01/18 History of Present Illness History of Present Illness: AARON LAWRENCE is a 52 year old male with past medical history of Hypertension GERD Erectile dysfunction He presented to the emergency room with nausea and vomiting with fevers chills and diaphoresis for about a week. He was noted to have neutropenia with WBC count of 1.7 and thrombocytopenia with platelets of 66,000. He was treated with IV fluids and antiemetics. Chest x-ray was unremarkable. Urine analysis was normal. Blood cultures have been negative. He was evaluated by the hematology service for his neutropenia and thrombocytopenia. It was felt that this was due to an acute systemic viral illness. The patient is feeling much better now his counts have improved and he is stable for discharge today. He is to follow-up with hematology in 1 week. His WBC count today is 3800. Platelet count 83,000. Hemoglobin 13. Hospital Course Hospital Course: As above Physical Exam Vital Signs: Temp Pulse Resp BP Pulse Ox 97.9 F 67 18 145/91 H 100 03/04/18 12:00 03/04/18 12:00 03/04/18 12:00 03/04/18 12:00 03/04/18 12:00 Intake & Output 03/03/18 03/04/18 03/05/18 06:59 06:59 06:59 Intake Total 3117 3800 Output Total 1700 1500 Balance 1417 2300 Weight 110.4 kg 110.5 kg General appearance: PRESENT: no acute distress Respiratory exam: PRESENT: symmetrical, unlabored Neurological exam: PRESENT: alert, awake Results Laboratory Results: 03/04/18 05:20 03/04/18 05:20 03/04/18 03/04/18 05:20 05:20 WBC 3.8 L RBC 4.50 Hgb 13.6 Hct 40.0 MCV 88 MCH 30.3 MCHC 34.1 RDW 12.9 Plt Count 83 L Seg Neutrophils % 33.5 L Lymphocytes % 55.0 H Monocytes % 9.2 Eosinophils % 1.9 Basophils % 0.4 Absolute Neutrophils 1.3 L Absolute Lymphocytes 2.1 Absolute Monocytes 0.4 Absolute Eosinophils 0.1 Absolute Basophils 0.0 Sodium 144.7 Potassium 3.9 Chloride 105 Carbon Dioxide 29 Anion Gap 11 BUN 8 Creatinine 0.81 Est GFR ( Amer) > 60 Est GFR (Non-Af Amer) > 60 Glucose 102 Calcium 8.9 Total Bilirubin 0.8 AST 75 H ALT 101 H Alkaline Phosphatase 95 Total Protein 6.4 Albumin 3.7 Impressions: Abdomen/Pelvis CT 03/01/18 00:00 IMPRESSION: Fatty infiltration of the liver. The spleen appears enlarged without focal splenic abnormalities being identified. Other findings as noted above. Abdomen Ultrasound 03/01/18 13:03 IMPRESSION: FATTY INFILTRATION OF THE LIVER. Small echogenic focus in the gallbladder which has the appearance of a small gallstone. No other significant intra-abdominal abnormalities were identified. Other findings as noted above Chest CT 03/01/18 14:03 IMPRESSION: No significant intrathoracic abnormalities were identified. Findings as noted above Qualifiers - * PATIENT BEING DISCHARGED WITH ANY OF THE FOLLOWING DIAGNOSIS: No Plan Time Spent: Greater than 30 Minutes
[2018-03-05 08:20] LABS: PATH REVIEW PATHOLOGIST REVIEWED
== END 2018-03-04 13:15 | disposition home or self-care (01) ==
LOC: ER 11:10 → EH 16:52 → INTOOBSV 16:52 → 4S 19:33
PROVIDERS: ADMIT Internal Medicine; ATTEND Internal Medicine
DX: B33.8 Other specified viral diseases (principal); J30.9 Allergic rhinitis, unspecified; R79.89 Other specified abnormal findings of blood chemistry; I10 Essential (primary) hypertension; R11.2 Nausea with vomiting, unspecified; E87.6 Hypokalemia; D70.9 Neutropenia, unspecified; D69.6 Thrombocytopenia, unspecified; N17.9 Acute kidney failure, unspecified; R51 Headache; M62.81 Muscle weakness (generalized); R61 Generalized hyperhidrosis; R53.83 Other fatigue; N52.9 Male erectile dysfunction, unspecified; R63.0 Anorexia; Z68.33 Body mass index [BMI] 33.0-33.9, adult; Z79.899 Other long term (current) drug therapy; Z85.46 Personal history of malignant neoplasm of prostate; Z87.19 Personal history of other diseases of the digestive system
CPT/HCPCS: 99285; 96361; 96375; 96365; 36415 ×4; 87040; 83690; 83735; 85025 ×3; 85027; 80076 ×3; 80048 ×3; 80053; 81001; 86701; 83605; 80074; 76705; 71260; 74177; G0378 ×5; J2765; J3490; J2405 ×3; J7030 ×3; J2543

== ENCOUNTER → 2019-03-26 | Outpatient (CLI) | payer BC ==
[2019-03-26 10:36] LABS: ARTERIAL BLOOD BASE EXCESS 1.1 mmol/L; ARTERIAL BLOOD H2CO3 1.31 mmol/L (1.05-1.35); ARTERIAL BLOOD HCO3 26.3 mmol/L (20-24); ARTERIAL BLOOD O2 SATURATION 96.4 % (94-98); ARTERIAL BLOOD PCO2 43.6 mmHg (35-45); ARTERIAL BLOOD PO2 85.4 mmHg (80-100); ARTERIAL BLOOD TOTAL CO2 27.6 mmol/L (23-27)
[2019-03-26 10:43] LABS: ARTERIAL BLOOD FIO2 ROOM AIR
[2019-03-26 13:22] LABS: ABSOLUTE EOSINOPHILS # (AUTO) 0.2 10^3/uL (0.0-0.6); ABSOLUTE LYMPHOCYTES (AUTO) 1.8 10^3/uL (0.5-4.7); ABSOLUTE MONOCYTES (AUTO) 0.5 10^3/uL (0.1-1.4); BASOPHILS % (AUTO) 0.8 % (0-2); EOSINOPHILS % (AUTO) 3.8 % (0-6); HEMATOCRIT 44.3 % (37.9-51.0); HEMOGLOBIN 14.9 g/dL (13.5-17.0); LYMPHOCYTES % (AUTO) 32.2 % (13-45); MEAN CORPUSCULAR HEMOGLOBIN 30.2 pg (27.0-33.4); MEAN CORPUSCULAR HGB CONC 33.6 g/dL (32.0-36.0); MEAN CORPUSCULAR VOLUME 90 fl (80-97); MONOCYTES % (AUTO) 9.1 % (3-13); PLATELET COUNT 162 10^3/uL (150-450); RED BLOOD COUNT 4.93 10^6/uL (4.35-5.55); RED CELL DISTRIBUTION WIDTH 13.5 % (11.5-14.0); SEGMENTED NEUTROPHILS % (AUTO) 54.1 % (42-78); TOTAL CELLS COUNTED % (AUTO) 100 %; WHITE BLOOD COUNT 5.5 10^3/uL (4.0-10.5)
[2019-03-26 13:38] LABS: ALANINE AMINOTRANSFERASE 43 U/L (21-72); ALBUMIN 4.7 g/dL (3.5-5.0); ALKALINE PHOSPHATASE 62 U/L (38-126); ANION GAP 10 (5-19); ASPARTATE AMINO TRANSFERASE 38 U/L (17-59); BILIRUBIN,DIRECT 0.3 mg/dL (0.0-0.4); BILIRUBIN,TOTAL 0.7 mg/dL (0.2-1.3); BLOOD UREA NITROGEN 20 mg/dL (7-20); CARBON DIOXIDE 30 mmol/L (22-30); CHLORIDE 102 mmol/L (98-107); GLUCOSE 127 mg/dL (75-110); SODIUM 142.3 mmol/L (137-145); TOTAL PROTEIN 7.4 g/dL (6.3-8.2)
[2019-03-26 13:50] LABS: FREE T3 4.28 pg/mL (2.77-5.27); FREE T4 (FREE THYROXINE) 1.07 ng/dL (0.78-2.19)
[2019-03-26 14:03] LABS: THYROID STIMULATING HORMONE 0.39 uIU/mL (0.47-4.68)
[2019-03-27 07:25] LABS: THYROID PEROXIDASE (TPO) AB 13 IU/mL (0-34)
[2019-03-27 09:51] LABS: FOLATE 4.23 ng/mL (>2.76)
[2019-03-28 11:04] LABS: TESTOSTERONE FREE (DIRECT) 4.2 pg/mL (7.2-24.0)
== END ==
LOC: OD 09:35
PROVIDERS: ATTEND Internal Medicine Geriatric Medicine
DX: G47.33 Obstructive sleep apnea (adult) (pediatric) (principal); R53.83 Other fatigue
CPT/HCPCS: 36415; 36600; 80053; 82306; 82607; 82746; 82803; 84402; 84403; 84439; 84443; 84481; 85025; 86376

== ENCOUNTER 2019-07-01 19:48 | Emergency (ER) | payer BC ==
[2019-07-01] MEDS ORDERED: ACETAMINOPHEN 325 MG TABLET PO ONE (20:29)
[2019-07-01] MEDS ORDERED: CETIRIZINE 10 MG TABLET PO ONE (20:30)
--- NOTE | 2019-07-01 20:30 | ER Document Report ---
ED Medical Screen (RME) - General Chief Complaint: Chest Pain > 30 Stated Complaint: CHEST PAINS/SHORTNESS OF BREATH Time Seen by Provider: 07/01/19 20:21 Primary Care Provider: DARLENE HERNANDEZ MD [Primary Care Provider] - Follow up as needed Notes: Patient is a 53-year-old male who presents the emergency department with the chief complaint of chest pain. States the pain is in the middle of his chest, it does not radiate. States that he feels like he is run down. He attempted to take Mucinex but had little relief of his symptoms. Admits to some rhinorrhea and a cough. He had a low-grade fever of 100.5 last night. States that he feels rundown and off. He states, "I feel like an elephant sitting on my chest." Patient has a past medical history of hypertension and GERD. Exam: Clear breath sounds bilaterally. S1, S2. I have greeted and performed a rapid initial assessment of this patient. A comprehensive ED assessment and evaluation of the patient, analysis of test results and completion of medical decision making process will be conducted by an additional ED providers. TRAVEL OUTSIDE OF THE [place] IN LAST 30 DAYS: No - Related Data Allergies/Adverse Reactions: ibuprofen Allergy (Intermediate, Verified 07/01/19 20:26) WHOLE BODY SWELLING BEE STING Allergy (Mild, Uncoded 07/01/19 20:26) SITE SWELLING Past Medical History - Social History Chew tobacco use (# tins/day): No Frequency of alcohol use: None Drug Abuse: None - Past Medical History Cardiac Medical History: Reports: Hx Hypertension Renal/ Medical History: Denies: Hx Peritoneal Dialysis GI Medical History: Reports: Hx Gastroesophageal Reflux Disease Psychiatric Medical History: Denies: Hx Depression Past Surgical History: Reports: Hx Orthopedic Surgery - Discectomy and spinal fusion L5-S1 2009 in [place], ACL repair, Hx Tonsillectomy, Other - Back surgery, left knee surgery - Immunizations Hx Diphtheria, Pertussis, Tetanus Vaccination: Yes Physical Exam - Vital signs Vitals: Temp Pulse Resp BP Pulse Ox 98.2 F 88 16 176/104 H 96 07/01/19 20:03 07/01/19 20:03 07/01/19 20:03 07/01/19 20:03 07/01/19 20:03 Course - Vital Signs Vital signs: Temp Pulse Resp BP Pulse Ox 98.2 F 88 16 176/104 H 96 07/01/19 20:03 07/01/19 20:03 07/01/19 20:03 07/01/19 20:03 07/01/19 20:03 Doctor's Discharge - Discharge Referrals: DARLENE HERNANDEZ MD [Primary Care Provider] - Follow up as needed
[2019-07-01 20:50] LABS: ABSOLUTE EOSINOPHILS # (AUTO) 0.2 10^3/uL (0.0-0.6); ABSOLUTE LYMPHOCYTES (AUTO) 0.6 10^3/uL (0.5-4.7); ABSOLUTE MONOCYTES (AUTO) 0.5 10^3/uL (0.1-1.4); ABSOLUTE NEUT (AUTO) 8.5 10^3/uL (1.7-8.2); BASOPHILS % (AUTO) 0.3 % (0-2); EOSINOPHILS % (AUTO) 1.6 % (0-6); HEMATOCRIT 44.1 % (37.9-51.0); LYMPHOCYTES % (AUTO) 5.8 % (13-45); MEAN CORPUSCULAR HEMOGLOBIN 30.4 pg (27.0-33.4); MEAN CORPUSCULAR VOLUME 89 fl (80-97); MONOCYTES % (AUTO) 5.4 % (3-13); PLATELET COUNT 155 10^3/uL (150-450); RED BLOOD COUNT 4.94 10^6/uL (4.35-5.55); RED CELL DISTRIBUTION WIDTH 13.5 % (11.5-14.0); SEGMENTED NEUTROPHILS % (AUTO) 86.9 % (42-78); TOTAL CELLS COUNTED % (AUTO) 100 %; WHITE BLOOD COUNT 9.8 10^3/uL (4.0-10.5)
--- NOTE | 2019-07-01 20:55 | RADIOLOGY REPORT (SQ) ---
XR CHEST 1 VIEW EXAM DATE: 07/01/2019 8:27 PM CDT HISTORY: shortness of breath; chest pain. COMPARISON: 10/31/2016 FINDINGS: The heart size is within normal limits. No consolidation, pleural effusion, or pneumothorax is seen. The bony thorax is intact. IMPRESSION: No evidence of acute cardiopulmonary disease.
[2019-07-01 21:09] LABS: ALBUMIN 4.8 g/dL (3.5-5.0); ALKALINE PHOSPHATASE 57 U/L (38-126); ANION GAP 13 (5-19); ASPARTATE AMINO TRANSFERASE 34 U/L (17-59); BILIRUBIN,DIRECT 0.1 mg/dL (0.0-0.4); BILIRUBIN,TOTAL 1.4 mg/dL (0.2-1.3); BLOOD UREA NITROGEN 13 mg/dL (7-20); CALCIUM 9.7 mg/dL (8.4-10.2); CARBON DIOXIDE 28 mmol/L (22-30); CHLORIDE 97 mmol/L (98-107); CREATINE KINASE 270 U/L (55-170); GLUCOSE 142 mg/dL (75-110); POTASSIUM 4.2 mmol/L (3.6-5.0)
[2019-07-01 21:30] LABS: CREATINE KINASE MB 1.89 ng/mL (<4.55); TROPONIN I < 0.012 ng/mL
--- NOTE | 2019-07-02 00:09 | ER Document Report ---
ED General - General Chief Complaint: Cough Stated Complaint: Shortness of breath Time Seen by Provider: 07/01/19 20:21 Primary Care Provider: DARLENE HERNANDEZ MD [ACTIVE STAFF] - Follow up in 3-5 days Notes: Patient is a 53-year-old male that comes to the emergency department for chief complaint of feeling generally ill with body aches, congested cough, low-grade fever of 100.5 at home, minimal nasal congestion, shortness of breath, and developing pain in his chest especially with cough. He states he feels like he hit by a train. He denies vomiting, diarrhea, headache. He states he has wheezing occasionally but he is able to cough and clear this intermittently. He does not smoke, denies history of smoking, denies recreational drugs. Past medical history of hypertension, GERD, back surgery. He denies medical history otherwise. No obvious sick contacts. TRAVEL OUTSIDE OF THE [place] IN LAST 30 DAYS: No - Related Data Allergies/Adverse Reactions: ibuprofen Allergy (Intermediate, Verified 07/01/19 20:26) WHOLE BODY SWELLING BEE STING Allergy (Mild, Uncoded 07/01/19 20:26) SITE SWELLING Past Medical History - General Information source: Patient - Social History Smoking Status: Never Smoker Chew tobacco use (# tins/day): No Frequency of alcohol use: None Drug Abuse: None Lives with: Family Family History: Reviewed & Not Pertinent Patient has suicidal ideation: No Patient has homicidal ideation: No - Past Medical History Cardiac Medical History: Reports: Hx Hypertension Renal/ Medical History: Denies: Hx Peritoneal Dialysis GI Medical History: Reports: Hx Gastroesophageal Reflux Disease Psychiatric Medical History: Denies: Hx Depression Past Surgical History: Reports: Hx Orthopedic Surgery - Discectomy and spinal fusion L5-S1 2009 in [place], ACL repair, Hx Tonsillectomy, Other - Back surgery, left knee surgery - Immunizations Hx Diphtheria, Pertussis, Tetanus Vaccination: Yes Review of Systems - Review of Systems Constitutional: See HPI EENT: See HPI Cardiovascular: See HPI Respiratory: See HPI Gastrointestinal: No symptoms reported Genitourinary: No symptoms reported Male Genitourinary: No symptoms reported Musculoskeletal: No symptoms reported Skin: No symptoms reported Hematologic/Lymphatic: No symptoms reported Neurological/Psychological: No symptoms reported Physical Exam - Vital signs Vitals: Temp Pulse Resp BP Pulse Ox 98.2 F 88 16 176/104 H 96 07/01/19 20:03 07/01/19 20:03 07/01/19 20:03 07/01/19 20:03 07/01/19 20:03 - Notes Notes: GENERAL: Slightly flushed, appears to feel slightly under the weather but is not in any distress HEAD: Normocephalic, atraumatic. EYES: Pupils equal, round, and reactive to light. Extraocular movements intact. ENT: Oral mucosa moist, tongue midline. Oropharynx unremarkable. Airway patent. Nares patent, no nasal septal hematoma, TM's intact. NECK: Full range of motion. Supple. Trachea midline. LUNGS: Intermittent scattered rhonchi and wheezes on the right, this clears with cough, frequent coughing episodes noted. No respiratory distress. No tachypnea. HEART: Regular rate and rhythm. No murmur ABDOMEN: Soft, non-tender. Non-distended. Bowel sounds present in all 4 quadrants. GENITOURINARY: Deferred EXTREMITIES: Moves all 4 extremities spontaneously. No edema, normal radial and dorsalis pedis pulses bilaterally. No cyanosis. BACK: no cervical, thoracic, lumbar midline tenderness. No saddle anesthesia, normal distal neurovascular exam. Moves all extremities in full range of motion. NEUROLOGICAL: Alert and oriented x3. Normal speech. Cranial nerves II through XII grossly intact. PSYCH: Normal affect, normal mood. SKIN: Warm, dry, normal turgor. No rashes or lesions noted. Course - Re-evaluation Re-evalutation: Patient has rhonchi and wheezing noted on exam, mainly on the right side. However he did have a coughing episode and clear the wheezing. He is does not have any noted congestion in the nasal or sinus areas on my exam. He does have frequent coughing episodes. He does appears like he does not feel well but he does not appear toxic either. He is not hypoxic, tachycardic, or hypotensive. There is mild elevation of neutrophils on CBC but no leukocytosis or bandemia. Chest x-ray is unremarkable. He has reported fever at home but not here. Blood pressure initially elevated but normalized while he was here. No tachycardia or hypoxia. Work-up is nonspecific with no leukocytosis, nonspecific chemistry, negative troponin. Based on patient's presentation this appears to be either bronchitis or developing pneumonia. I have very low suspicion of ACS based on his negative troponin after over 12 hours of symptoms along with his general presentation and history. I discussed with patient. After discussion was made decision was made to treat him with both prednisone and doxycycline, have him closely follow-up with primary care, and have him return if he worsens in any way. Patient states understanding and agreement. Stable at time of discharge. - Vital Signs Vital signs: Temp Pulse Resp BP Pulse Ox 98.5 F 88 20 125/79 96 07/02/19 00:22 07/01/19 20:03 07/02/19 00:00 07/01/19 23:31 07/01/19 23:31 - Laboratory Result Diagrams: 07/01/19 20:35 07/01/19 20:35 Laboratory results interpreted by me: 07/01/19 07/01/19 20:35 20:35 Lymph % (Auto) 5.8 L Absolute Neuts (auto) 8.5 H Seg Neutrophils % 86.9 H Chloride 97 L Glucose 142 H Total Bilirubin 1.4 H Creatine Kinase 270 H - EKG Interpretation by Me Additional EKG results interpreted by me: EKG shows sinus rhythm at a rate of 85, QTC of 414, normal axis, no T wave inversions or ST segment changes in consecutive leads Discharge - Discharge Clinical Impression: Productive cough, Body aches, Shortness of breath Chest pain Qualifiers: Chest pain type: unspecified Qualified Code(s): R07.9 - Chest pain, unspecified Condition: Stable Disposition: HOME, SELF-CARE Additional Instructions: Your examination is reassuring at this time but your evaluation is suggestive of either an early pneumonia or developing bronchitis. Take prednisone steroid and doxycycline antibiotic as prescribed to completion. Take acetaminophen if needed for fever/chills, drink plenty fluids and rest. Follow-up closely with your primary care provider. Come back if you are worse including difficulty breathing, vomiting, passing out, spiking fevers, or any other concerning or worsening symptoms. Prescriptions: Prednisone [Deltasone 20 mg Tablet] 2 tab PO DAILY 5 Days #10 tablet Doxycycline Hyclate 100 mg PO BID #14 capsule Referrals: DARLENE HERNANDEZ MD [ACTIVE STAFF] - Follow up in 3-5 days
[2019-07-02] MEDS ORDERED: DOXYCYCLINE HYCLATE 100 MG TABLET PO ONE (00:10)
[2019-07-02] MEDS ORDERED: PREDNISONE 20 MG TABLET PO ONE (00:10)
[2019-07-02 00:21] VITALS: BP 125/79
--- NOTE | 2019-07-02 07:48 | EKG REPORT ---
SEVERITY:- BORDERLINE ECG - SINUS RHYTHM LA ABNORMALITY : Confirmed by: Harish Hernandez MD 02-Jul-2019 07:47:59
== END 2019-07-02 00:26 | disposition home or self-care (01) ==
LOC: ER 19:48
DX: R05 Cough (principal); R06.02 Shortness of breath; R07.9 Chest pain, unspecified; R06.2 Wheezing; R09.89 Other specified symptoms and signs involving the circulatory and respiratory systems; I10 Essential (primary) hypertension; Z88.8 Allergy status to other drugs, medicaments and biological substances; Z91.030 Bee allergy status
CPT/HCPCS: 93005; 36415; 82553; 82550; 85025; 80053; 84484; 71045; 93010; J7512; 99283

== ENCOUNTER 2020-06-24 07:15 | Emergency (ER) | payer BC ==
[2020-06-24] MEDS ORDERED: IPRATROPIUM/ALBUTEROL 0.5-2.5 MG/3 ML AMPUL NEB ONE (08:14)
[2020-06-24] MEDS: ALBUTEROL SULFATE 0.083% NEB 2.5 MG/3 ML AMPUL NEB SCH ×2 (08:21→09:23)
--- NOTE | 2020-06-24 08:40 | ER Document Report ---
ED General - General Chief Complaint: Shortness Of Breath Stated Complaint: BREATHING PROBLEMS Time Seen by Provider: 06/24/20 08:15 Information source: Patient TRAVEL OUTSIDE OF THE [place] IN LAST 30 DAYS: No - HPI Notes: Patient is a 54-year-old male with a history of asthma who presents for an asthma exacerbation that began last night. Patient states he was cleaning out the trailer that was very alex and had cat and dog dander. Patient endorses shortness of breath, chest tightness, and wheezing that began last night. He ran out of his albuterol inhaler yesterday which caused him to come to the ED. Patient denies fever, headache, cough, chest pain, nausea and vomiting. - Related Data Allergies/Adverse Reactions: ibuprofen Allergy (Intermediate, Verified 06/24/20 07:30) WHOLE BODY SWELLING BEE STING Allergy (Mild, Uncoded 06/24/20 07:30) SITE SWELLING Home Medications: Amlodipine. Protonix. Albuterol. HCTZ Past Medical History - General Information source: Patient - Social History Smoking Status: Never Smoker Chew tobacco use (# tins/day): No Frequency of alcohol use: None Drug Abuse: None Family History: Reviewed & Not Pertinent Patient has homicidal ideation: No - Past Medical History Cardiac Medical History: Reports: Hx Hypertension Pulmonary Medical History: Reports: Hx Asthma Renal/ Medical History: Denies: Hx Peritoneal Dialysis GI Medical History: Reports: Hx Gastroesophageal Reflux Disease Psychiatric Medical History: Denies: Hx Depression Past Surgical History: Reports: Hx Orthopedic Surgery - Discectomy and spinal fusion L5-S1 2009 in [place], ACL repair, Hx Tonsillectomy, Other - Back surgery, left knee surgery - Immunizations Hx Diphtheria, Pertussis, Tetanus Vaccination: Yes Review of Systems - Review of Systems Constitutional: No symptoms reported EENT: No symptoms reported Cardiovascular: See HPI Respiratory: See HPI Gastrointestinal: No symptoms reported Genitourinary: No symptoms reported Male Genitourinary: No symptoms reported Musculoskeletal: No symptoms reported Skin: No symptoms reported Hematologic/Lymphatic: No symptoms reported Neurological/Psychological: No symptoms reported Physical Exam - Vital signs Vitals: Temp Pulse Resp BP Pulse Ox 97.5 F 81 20 166/94 H 98 06/24/20 07:21 06/24/20 07:21 06/24/20 07:21 06/24/20 07:21 06/24/20 07:21 - Notes Notes: PHYSICAL EXAMINATION: VITALS: Vitals reviewed and within normal limits. GENERAL: Well-appearing, well-nourished and in no acute distress. Currently receiving a breathing treatment. HEAD: Atraumatic, normocephalic. EYES: Pupils equal round and reactive to light, extraocular movements intact, sclera anicteric, conjunctiva are normal. ENT: nares patent, oropharynx clear without exudates. Moist mucous membranes. NECK: Normal range of motion, supple without lymphadenopathy. LUNGS: Mild expiratory wheeze throughout bilaterally. No rales or rhonchi. HEART: Regular, rate, and rhythm without murmurs. ABDOMEN: Soft, nontender, normoactive bowel sounds. No guarding, no rebound. No masses appreciated. EXTREMITIES: Normal range of motion, no pitting or edema. No cyanosis. NEUROLOGICAL: No focal neurological deficits. Moves all extremities spontaneously and on command. PSYCH: Normal mood, normal affect. SKIN: Warm, Dry, normal turgor, no rashes or lesions noted. Course - Re-evaluation Re-evalutation: Patient is a 54-year-old male with a history of asthma who presents for an asthma exacerbation that began last night. Patient was cleaning out a alex trailer which caused his symptoms to come on. He endorses shortness of breath, chest tightness and wheezing. Upon arrival, nursing reported inspiratory and expiratory wheezing throughout and ordered the asthma protocol. Patient was in the middle of a breathing treatment when I examined him. He has mild expiratory wheezing throughout with no labored respirations or accessory muscle use. Patient is satting well with an O2 sat of 98%. Patient reassessed and wheezing improved. Patient states he is feeling much better and reports resolution of his symptoms. Patient will be discharged home with a prescription for prednisone and an albuterol inhaler. Return precautions given. - Vital Signs Vital signs: Temp Pulse Resp BP Pulse Ox 97.5 F 81 9 L 182/97 H 94 06/24/20 07:21 06/24/20 07:21 06/24/20 09:05 06/24/20 09:05 06/24/20 09:05 Discharge - Discharge Clinical Impression: Asthma exacerbation Qualifiers: Asthma severity: moderate Asthma persistence: unspecified Qualified Code(s): J45.901 - Unspecified asthma with (acute) exacerbation Condition: Stable Disposition: HOME, SELF-CARE Additional Instructions: You were seen for an asthma exacerbation. Your symptoms improved with treatment here in the emergency department. However, it is very important that you return to the emergency department immediately if you began to have worsening difficulty breathing that does not respond to your normal home nebulizers. You are also being sent home on a five-day course of steroids that you should start taking today. Please also follow closely with your primary care physician. you should also return to emergency department if you develop fever greater than 101, persistent cough, persistent vomiting, pass out, or any other symptoms that are concerning to you. Prescriptions: Prednisone [Deltasone 20 mg Tablet] 60 mg PO DAILY 5 Days #15 tablet Albuterol Sulfate [Proair HFA Inhalation Aerosol 8.5 gm MDI] 1 puff IH Q4 PRN #1 mdi PRN Reason: Referrals: [facility] [Provider Group] - Follow up as needed
[2020-06-24 09:24] VITALS: BP 182/97
== END 2020-06-24 09:30 | disposition home or self-care (01) ==
LOC: ER 07:15
DX: J45.901 Unspecified asthma with (acute) exacerbation (principal); R06.02 Shortness of breath; Z79.51 Long term (current) use of inhaled steroids; Z79.899 Other long term (current) drug therapy; I10 Essential (primary) hypertension
CPT/HCPCS: 94640 ×2; 99284; J7613

== ENCOUNTER 2020-07-26 14:27 | Emergency (ER) | payer BC ==
[2020-07-26] MEDS ORDERED: IPRATROPIUM/ALBUTEROL 0.5-2.5 MG/3 ML AMPUL NEB ONE ×2 (14:59→15:45)
[2020-07-26] MEDS ORDERED: PREDNISONE 20 MG TABLET PO ONE (14:59)
--- NOTE | 2020-07-26 15:01 | ER Document Report ---
ED Medical Screen (RME) - General Chief Complaint: Shortness Of Breath Stated Complaint: BREATHING PROBLEM Time Seen by Provider: 07/26/20 14:50 TRAVEL OUTSIDE OF THE [place] IN LAST 30 DAYS: No - HPI Notes: 07/26/20 14:59 55-year-old male with past medical history for obesity and asthma to the emergency department with persistent shortness of breath for the past several weeks but significantly worse today. He states he has asthma and he feels like his asthma is not well controlled. He is planning on seeing his primary care physician for this but has not been able to get in just yet. 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 States he felt a little bit dizzy. Took a couple puffs of his albuterol rescue inhaler but that did not really help. He states that he continues to wheeze. He denies any chest pain. He does not smoke. He has never been hospitalized or intubated. On brief medical screening exam, patient is notably diaphoretic. He is slightly breathy when speaking to me but not in respiratory distress. He has expiratory and inspiratory wheezes throughout. He is not tripoding. I performed a brief medical screening exam on the patient determined that the patient needs further evaluation and management by main side provider. I have placed initial orders to help expedite care. - Related Data Allergies/Adverse Reactions: ibuprofen Allergy (Intermediate, Verified 06/24/20 07:30) WHOLE BODY SWELLING BEE STING Allergy (Mild, Uncoded 06/24/20 07:30) SITE SWELLING Past Medical History - Past Medical History Cardiac Medical History: Reports: Hx Hypertension Pulmonary Medical History: Reports: Hx Asthma Renal/ Medical History: Denies: Hx Peritoneal Dialysis GI Medical History: Reports: Hx Gastroesophageal Reflux Disease Psychiatric Medical History: Denies: Hx Depression Past Surgical History: Reports: Hx Orthopedic Surgery - Discectomy and spinal fusion L5-S1 2009 in [place], ACL repair, Hx Tonsillectomy, Other - Back surgery, left knee surgery - Immunizations Hx Diphtheria, Pertussis, Tetanus Vaccination: Yes Physical Exam - Vital signs Vitals: Temp Pulse Resp BP Pulse Ox 98.5 F 57 L 20 213/94 H 93 07/26/20 14:41 07/26/20 14:41 07/26/20 14:41 07/26/20 14:41 07/26/20 14:41 Course - Vital Signs Vital signs: Temp Pulse Resp BP Pulse Ox 98.5 F 57 L 20 213/94 H 93 07/26/20 14:41 07/26/20 14:41 07/26/20 14:41 07/26/20 14:41 07/26/20 14:41
[2020-07-26] MEDS ORDERED: METHYLPREDNISOLONE INJ 125 MG/2 ML SDV IV ONE (15:43)
[2020-07-26] MEDS ORDERED: MAGNESIUM SULFATE/D5W 1 GM/100 ML RTUPB IV ONE (15:45)
--- NOTE | 2020-07-26 15:46 | ER Document Report ---
ED Respiratory Problem - General Chief Complaint: Shortness Of Breath Stated Complaint: BREATHING PROBLEM Time Seen by Provider: 07/26/20 14:50 Mode of Arrival: Ambulatory Information source: Patient Notes: [facility] HPI: 55-year-old male with past medical history for obesity and asthma to the emergency department with persistent shortness of breath for the past several weeks but significantly worse today. He states he has asthma and he feels like his asthma is not well controlled. He is planning on seeing his primary care physician for this but has not been able to get in just yet. 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 States he felt a little bit dizzy. Took a couple puffs of his albuterol rescue inhaler but that did not really help. He states that he continues to wheeze. He denies any chest pain. He does not smoke. He has never been hospitalized or intubated. TRAVEL OUTSIDE OF THE [place] IN LAST 30 DAYS: No - Related Data Allergies/Adverse Reactions: ibuprofen Allergy (Intermediate, Verified 06/24/20 07:30) WHOLE BODY SWELLING BEE STING Allergy (Mild, Uncoded 06/24/20 07:30) SITE SWELLING Past Medical History - General Information source: Patient - Social History Smoking Status: Never Smoker Family History: Reviewed & Not Pertinent - Past Medical History Cardiac Medical History: Reports: Hx Hypertension Pulmonary Medical History: Reports: Hx Asthma Renal/ Medical History: Denies: Hx Peritoneal Dialysis GI Medical History: Reports: Hx Gastroesophageal Reflux Disease Psychiatric Medical History: Denies: Hx Depression Past Surgical History: Reports: Hx Orthopedic Surgery - Discectomy and spinal fusion L5-S1 2009 in [place], ACL repair, Hx Tonsillectomy, Other - Back surgery, left knee surgery - Immunizations Hx Diphtheria, Pertussis, Tetanus Vaccination: Yes Review of Systems - Review of Systems Constitutional: Diaphoresis - REPORTS NORMAL FOR HIM. denies: Chills, Fever EENT: No symptoms reported Cardiovascular: denies: Chest pain, Palpitations, Dizziness Respiratory: Cough, Short of breath, Wheezing -: Yes All other systems reviewed and negative Physical Exam - Vital signs Vitals: Temp Pulse Resp BP Pulse Ox 98.5 F 57 L 20 213/94 H 93 07/26/20 14:41 07/26/20 14:41 07/26/20 14:41 07/26/20 14:41 07/26/20 14:41 Interpretation: Normal - General General appearance: Appears well, Alert - HEENT Head: Normocephalic, Atraumatic Eyes: Normal Pupils: PERRL - Respiratory Respiratory status: Tachypnea Chest status: Nontender Breath sounds: Wheezing Chest palpation: Normal - Cardiovascular Rhythm: Regular Heart sounds: Normal auscultation Murmur: No - Abdominal Inspection: Normal Distension: No distension Bowel sounds: Normal Tenderness: Nontender Organomegaly: No organomegaly - Back Back: Normal, Nontender - Extremities General upper extremity: Normal inspection, Nontender, Normal color, Normal ROM, Normal temperature General lower extremity: Normal inspection, Nontender, Normal color, Normal ROM, Normal temperature, Normal weight bearing. No: Shaka's sign - Neurological Neuro grossly intact: Yes Cognition: Normal Orientation: AAOx4 Trish Coma Scale Eye Opening: Spontaneous Trish Coma Scale Verbal: Oriented [place] Coma Scale Motor: Obeys Commands Trish Coma Scale Total: 15 Speech: Normal Motor strength normal: LUE, RUE, LLE, RLE Sensory: Normal - Psychological Associated symptoms: Normal affect, Normal mood - Skin Skin Temperature: Warm Skin Moisture: Diaphoretic Skin Color: Normal Course - Re-evaluation Re-evalutation: 07/26/20 18:12 Patient remains hypertensive. Respiratory status has improved and his lungs are now clear. He is being very anxious about leaving. His senile mother is apparently at home. He does have a history of hypertension. He did not take his blood pressure medication today so we gave him a dose. He states it has been running high for a few months now however due to COVID-19 he has only seen his primary care provider through telehealth. He has agreed to let me give him an additional dose of his blood pressure medication and then he will be discharged home. - Vital Signs Vital signs: Temp Pulse Resp BP Pulse Ox 97.2 F 57 L 20 195/101 H 96 07/26/20 18:18 07/26/20 14:41 07/26/20 18:04 07/26/20 18:04 07/26/20 18:04 - Laboratory Result Diagrams: 07/26/20 15:30 07/26/20 15:30 Laboratory results interpreted by me: 07/26/20 07/26/20 07/26/20 15:30 15:30 15:30 RBC 4.34 L Hgb 13.4 L Glucose 114 H ALT 68 H NT-Pro-B Natriuret Pep 169 H - EKG Interpretation by Me EKG shows normal: Sinus rhythm, [place], Intervals, QRS Complexes Additional EKG results interpreted by me: 07/27/20 11:[address] segment elevations or depression to suggest ischemia Discharge - Discharge Clinical Impression: Asthma exacerbation Condition: Stable Disposition: HOME, SELF-CARE Additional Instructions: Please take medications as prescribed. Your work-up today was generally reassuring other than the fact that your blood pressure was elevated. Please take blood pressure medications exactly as prescribed by your primary care team. Keep the follow-up appointment you have with primary care so that you can get that follow-up you were planning to get for pulmonology. 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 Please return with any new or worsening symptoms. Prescriptions: Nebulizer [Compact Ultrasonic Nebulizer] 1 each MC ONCE PRN #1 each PRN Reason: Prednisone [Deltasone 20 mg Tablet] 3 tab PO DAILY 5 Days #15 tablet Ipratropium/Albuterol Sulfate [Duoneb 3 ml Ampul] 3 ml NEB [id number] PRN #30 vial.neb PRN Reason:
[2020-07-26] MEDS ORDERED: AMLODIPINE BESYLATE 5 MG TABLET PO ONE ×2 (15:47→18:07)
[2020-07-26 15:54] LABS: ABSOLUTE EOSINOPHILS # (AUTO) 0.3 10^3/uL (0.0-0.6); ABSOLUTE LYMPHOCYTES (AUTO) 1.1 10^3/uL (0.5-4.7); ABSOLUTE MONOCYTES (AUTO) 0.5 10^3/uL (0.1-1.4); ABSOLUTE NEUT (AUTO) 3.8 10^3/uL (1.7-8.2); BASOPHILS % (AUTO) 0.8 % (0-2); HEMATOCRIT 39.5 % (37.9-51.0); HEMOGLOBIN 13.4 g/dL (13.5-17.0); LYMPHOCYTES % (AUTO) 19.3 % (13-45); MEAN CORPUSCULAR HEMOGLOBIN 30.9 pg (27.0-33.4); MEAN CORPUSCULAR HGB CONC 33.9 g/dL (32.0-36.0); MEAN CORPUSCULAR VOLUME 91 fl (80-97); MONOCYTES % (AUTO) 8.7 % (3-13); PLATELET COUNT 163 10^3/uL (150-450); RED BLOOD COUNT 4.34 10^6/uL (4.35-5.55); RED CELL DISTRIBUTION WIDTH 13.2 % (11.5-14.0); SEGMENTED NEUTROPHILS % (AUTO) 65.2 % (42-78); TOTAL CELLS COUNTED % (AUTO) 100 %; WHITE BLOOD COUNT 5.8 10^3/uL (4.0-10.5)
[2020-07-26 16:13] LABS: ALBUMIN 4.3 g/dL (3.5-5.0); ALKALINE PHOSPHATASE 64 U/L (38-126); ANION GAP 10 (5-19); ASPARTATE AMINO TRANSFERASE 58 U/L (17-59); BILIRUBIN,DIRECT 0.1 mg/dL (0.0-0.4); BILIRUBIN,TOTAL 0.6 mg/dL (0.2-1.3); BLOOD UREA NITROGEN 14 mg/dL (7-20); CALCIUM 9.6 mg/dL (8.4-10.2); CARBON DIOXIDE 28 mmol/L (22-30); CHLORIDE 102 mmol/L (98-107); GLUCOSE 114 mg/dL (75-110); POTASSIUM 4.2 mmol/L (3.6-5.0); TOTAL PROTEIN 6.9 g/dL (6.3-8.2)
--- NOTE | 2020-07-26 16:19 | RADIOLOGY REPORT (SQ) ---
EXAM DESCRIPTION: CHEST SINGLE VIEW IMAGES COMPLETED DATE/TIME: 07/26/2020 4:00 pm REASON FOR STUDY: SOB COMPARISON: 07/01/2019 EXAM PARAMETERS: NUMBER OF VIEWS: One view. TECHNIQUE: Single frontal radiographic view of the chest acquired. RADIATION DOSE: NA LIMITATIONS: None. FINDINGS: LUNGS AND PLEURA: No opacities, masses or pneumothorax. No pleural effusion. MEDIASTINUM AND HILAR STRUCTURES: No masses. Contour normal. HEART AND VASCULAR STRUCTURES: Heart normal in size. Normal vasculature. BONES: No acute findings. HARDWARE: None in the chest. OTHER: No other significant finding. IMPRESSION: NO ACUTE RADIOGRAPHIC FINDING IN THE CHEST. TECHNICAL DOCUMENTATION: JOB ID: [id number] [employer]- All Rights Reserved Reading location - IP/workstation name: [email or web address]
[2020-07-26 16:24] LABS: NT PRO BNP 169 pg/mL (<125)
[2020-07-26 16:27] LABS: TROPONIN I < 0.012 ng/mL
[2020-07-26 18:20] VITALS: BP 195/101
--- NOTE | 2020-07-26 19:48 | EKG REPORT ---
SEVERITY:- ABNORMAL ECG - SINUS RHYTHM PROBABLE LEFT ATRIAL ABNORMALITY NONSPECIFIC T ABNORMALITIES, LATERAL LEADS : Confirmed by: Jonny Balderas MD 26-Jul-2020 19:46:54
== END 2020-07-26 18:18 | disposition home or self-care (01) ==
LOC: ER 14:27
DX: J45.901 Unspecified asthma with (acute) exacerbation (principal); R42 Dizziness and giddiness; R61 Generalized hyperhidrosis; R05 Cough; I10 Essential (primary) hypertension; Z79.899 Other long term (current) drug therapy; Z88.8 Allergy status to other drugs, medicaments and biological substances; Z91.030 Bee allergy status
CPT/HCPCS: 93005; 94640 ×2; 99285; 96375; 96365; 36415; 85025; 80053; 84484; 83880; 71045; 93010; J2930; J3475